=== PATIENT | male | born 1930 | race Caucasian/White ===

== ENCOUNTER 2017-03-10 17:50 | Emergency (ER) | payer MEDICARE, BC ==
[2017-03-10 18:08] LABS: Glucose,Whole Blood 177 mg/dL (75-99)
[2017-03-10 18:11] VITALS: RESP 16
--- NOTE | 2017-03-10 18:24 | ED ---
Fall HPI - General Chief Complaint: Fall Stated Complaint: Fall Time Seen by Provider: 03/10/17 18:01 Source: patient, EMS Mode of arrival: EMS - History of Present Illness Initial Comments: This 86-year-old white male presents after she apparently fell. He was at the assisted living facility and the staff apparently heard a thump. He cannot remember falling. He has no current injuries. He does present via EMS and apparently vomited just shortly prior to arrival. He did receive some Zofran per EMS. He has no current complaints. There is no neck pain, back pain, abdominal pain, or extremity pain. He does not know if he lost consciousness but overall is a very poor historian. No other complaints or modifying factors. - Related Data Home Medications Medication Instructions Recorded Confirmed Cholecalciferol [Vitamin D3] 1,000 unit PO DAILY 03/10/17 03/10/17 Insulin Aspart [Novolog Flexpen] 3 unit SQ [id number] 03/10/17 03/10/17 Insulin Detemir [Levemir Flextouch] 25 units SQ BID 03/10/17 03/10/17 Multivitamins, Thera [Multivitamin 1 tab PO DAILY 03/10/17 03/10/17 (formulary)] Promethazine 6.25MG/5Ml [Phenergan 6.25 mg PO TID PRN 03/10/17 03/10/17 Syrup] metFORMIN HCL 1,000 mg PO BID 03/10/17 03/10/17 sitaGLIPtin [Januvia] 50 mg PO DAILY 03/10/17 03/10/17 Allergies Allergy/AdvReac Type Severity Reaction Status Date / Time No Known Allergies Allergy Verified 03/10/17 18:58 Review of Systems ROS Statement: Those systems with pertinent positive or pertinent negative responses have been documented in the HPI. ROS Other: All systems not noted in ROS Statement are negative. Past Medical History Past Medical History: Diabetes Mellitus History of Any Multi-Drug Resistant Organisms: None Reported Additional Past Surgical History / Comment(s): abdominal (pt unsure what it was) Past Psychological History: No Psychological Hx Reported Smoking Status: Never smoker Past Alcohol Use History: None Reported Past Drug Use History: None Reported General Exam - General Exam Comments Initial Comments: GENERAL: The patient is well nourished and well hydrated. VITAL SIGNS: Heart rate, blood pressure, respiratory rate reviewed as recorded in nurse's notes. EYES: Pupils are round and reactive. Extraocular movements are intact. No conjunctival / lid redness or swelling. ENT: No external evidence of injury, swelling, or ecchymosis. Airway is patent. Throat is clear. NECK: Nontender. No swelling or evidence of injury. No subcutaneous emphysema. Trachea is midline. No thyroid mass. HEART: Regular rate and rhythm. Good peripheral pulses. LUNGS/CHEST: Breath sounds clear and equal bilaterally. No rales, rhonchi, or wheezes. No ecchymosis, subcutaneous emphysema, or tenderness. ABDOMEN: Abdomen soft without tenderness. No palpable masses or organomegaly. No peritoneal signs. No abdominal wall swelling or ecchymosis. EXTREMITIES: No extremity tenderness. Normal muscle tone and function. No thoracolumbar tenderness. NEUROLOGIC: Sensation is grossly intact. Cranial nerve exam reveals face is symmetrical, tongue is midline, speech is clear. SKIN: There is a minimal abrasion noted to the anterior aspect of the left dodd. No induration or masses noted. PSYCHIATRIC: Alert and oriented. Appropriate behavior and judgment. Limitations: no limitations Course Vital Signs 03/10/17 03/10/17 18:07 19:11 Temperature 97.6 F Pulse Rate 82 80 Respiratory 16 16 Rate Blood Pressure 180/87 170/80 O2 Sat by Pulse 95 94 L Oximetry Medical Decision Making - Medical Decision Making The patient was seen and examined. An EKG was completed which shows a normal sinus rhythm at a rate of 82 with a first-degree AV block. There is evidence of a left bundle branch block and associated ST-T wave changes. The HI interval is 280, the QRS duration is 170, and the QTC intervals are elevated at 537. The patient had a computed tomography scan of his head and neck and this does not show any acute processes. The computed tomography scan of the brain does show some atrophy and old infarcts but no new problems. The neck showed some degenerative changes. The blood sugar was normal. The 2 granddaughters later do present and state that he is in his normal state of mind. He and the granddaughters feel that he is okay to be transferred back to the adult foster care facility. No injuries are identified other than a minor abrasion to his left leg. - Lab Data Lab Results 03/10/17 Range/Units 18:04 POC Glucose (mg/dL) 177 H (75-99) mg/dL POC Glu Custom Stock Maker ID Geneva Ramsey Disposition Clinical Impression: Fall, Head injury, Abrasion Disposition: HOME SELF-CARE Condition: Good Instructions: Fall Prevention for Older Adults (ED) Referrals: None,Stated [Primary Care Provider] - 1-2 days Time of Disposition: 19:29
--- NOTE | 2017-03-10 19:07 | CT ---
EXAMINATION TYPE: CT brain frederic marques DATE OF EXAM: 03/10/2017 COMPARISON: NONE HISTORY: 86-year-old male, poor historian, probable fall. Found on floor. Patient does not remember fall. CT DLP: 1375.5 mGycm Automated exposure control for dose reduction was used. Technique: Examination of the head was done in axial plane without intravenous contrast. Coronal and sagittal reconstructions performed. CT of the cervical spine was obtained in axial plane without intravenous injection of contrast mater ial. Coronal and sagittal reformatted images were obtained from the axial views for evaluation of f ractures, spinal alignment and canal. FINDINGS: Head: There is no evidence of acute intracranial hemorrhage, acute ischemic changes, mass, mass-effect, or extra-axial fluid collection. There is no effacement of cerebral sulci or basal subarachnoid cister ns. There is no hydrocephalus. There is no midline shift. Escudero-white matter distinction is preserv ed. There is moderate generalized supratentorial volume loss and a moderate-sized area of encephalomalaci a in the left parietal lobe and smaller within the right parietal lobe. Patchy confluent white matter hypodensities in both periventricular and deep white matter regions and old lacunar infarcts in the right basal ganglia. Paranasal sinuses and mastoid air cells well pneumatized. Orbits and globes are intact. Cervical spine: No craniocervical junction and upper moiety, predental space widening, or prevertebral soft tissue sw elling. Reversal of the normal cervical lordosis secondary to hypertrophic facet and uncovertebral joint arth ropathy. There is grade 1 retrolisthesis at C3-C4 and C4-C5 with disc osteophyte complexes at multiple levels. No acute fracture of the cervical spine. Changes resulting in mild spinal canal stenosis. Additional variable moderate neuroforaminal stenosis , more moderate to severe on the left at C3-C4 and C4-C5. Sagittal and coronal reformatted images confirm above findings. COMBINED IMPRESSION: 1. 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 No acute intracranial abnormal ity seen. 2. No acute fracture seen of the cervical spine. Grade 1 retrolistheses at C3-C4 and C4-C5 with moder ate to advanced spondylotic change.
[2017-03-10] MEDS ORDERED: BACITRACIN 500 UNIT/GM OINT 28.4 GM TUBE TOPICAL ONE (19:29)
[2017-03-10 20:01] VITALS: BP 159/78; PULSE 70; TEMP 98.2
== END 2017-03-10 20:40 | disposition home or self-care (01) ==
LOC: EC 17:50
DX: S80.812A Abrasion, left lower leg, initial encounter (principal); S09.90XA Unspecified injury of head, initial encounter; E11.9 Type 2 diabetes mellitus without complications; Z79.4 Long term (current) use of insulin; Z79.899 Other long term (current) drug therapy; W19.XXXA Unspecified fall, initial encounter; Y92.009 Unspecified place in unspecified non-institutional (private) residence as the place of occurrence of the external cause
CPT/HCPCS: 36415; 70450; 72125; 93005; 99284

== ENCOUNTER 2017-12-02 12:02 | Emergency (ER) | payer BC, MEDICARE ==
[2017-12-02 12:19] VITALS: RESP 18
--- NOTE | 2017-12-02 12:31 | ED ---
General Adult HPI - General Chief complaint: Fall Stated complaint: fall, head injury Time Seen by Provider: 12/02/17 12:20 Source: patient, RN notes reviewed Mode of arrival: wheelchair Limitations: no limitations - History of Present Illness Initial comments: Patient is an 87-year-old male presented to the emergency room today with a chief complaint of a fall that occurred this morning. He states he was trying to get out of bed loss his balance hitting the back of a wall causing a laceration of right-sided head. Does live or [facility] home. Patient states he was no loss conscious. Does have some tenderness locally. Denies any other complaints or symptoms. Is not on any blood thinners. Patient denies any recent fever, chills, shortness of breath, chest pain, back pain, abdominal pain , nausea or vomiting, numbness or tingling, headaches or visual changes, or any other complaints. - Related Data Home Medications Medication Instructions Recorded Confirmed Insulin Detemir [Levemir Flextouch] 30 units SQ BID 03/10/17 12/02/17 Aspirin EC [Ecotrin Low Dose] 81 mg PO DAILY 12/02/17 12/02/17 Furosemide [Lasix] 40 mg PO DAILY PRN 12/02/17 12/02/17 Isosorbide Mononitrate ER [Imdur] 30 mg PO QAM 12/02/17 12/02/17 Lisinopril [Zestril] 2.5 mg PO DAILY PRN 12/02/17 12/02/17 Metoprolol Succinate (ER) [Toprol 25 mg PO DAILY 12/02/17 12/02/17 Xl] Multivitamins, Thera [Multivitamin 1 tab PO DAILY 12/02/17 12/02/17 (formulary)] Allergies Allergy/AdvReac Type Severity Reaction Status Date / Time No Known Allergies Allergy Verified 12/02/17 12:49 Review of Systems ROS Statement: Those systems with pertinent positive or pertinent negative responses have been documented in the HPI. ROS Other: All systems not noted in ROS Statement are negative. Past Medical History Past Medical History: CVA/TIA, Diabetes Mellitus, Memory Impairment, Myocardial Infarction (PR) Additional Past Medical History / Comment(s): pancreatitis with part of pancreas removed (2008) Last Myocardial Infarction Date:: 2008 History of Any Multi-Drug Resistant Organisms: None Reported Past Surgical History: Joint Replacement Additional Past Surgical History / Comment(s): part of pancreas removed. Past Anesthesia/Blood Transfusion Reactions: No Reported Reaction Past Psychological History: No Psychological Hx Reported Smoking Status: Never smoker Past Alcohol Use History: None Reported Past Drug Use History: None Reported General Exam - General Exam Comments Initial Comments: General: The patient is awake and alert, in no distress, and does not appear acutely ill. Eye: Pupils are equal, round and reactive to light. Extra-ocular movements are intact. No nystagmus. There is normal conjunctiva bilaterally. No signs of icterus. Ears, nose, mouth and throat: There are moist mucous membranes and no oral lesions. Neck: The neck is supple, there is no tenderness or JVD. Cardiovascular: There is a regular rate and rhythm. No murmur, rub or gallop is appreciated. Respiratory: Lungs are clear to auscultation, respirations are non-labored, breath sounds are equal. No wheezes, stridor, rales, or rhonchi. Musculoskeletal: Normal ROM, no tenderness. Sensation intact. Strength 5/5. Pulses equal bilaterally 2+. Neurological: A&O x 3. CN II-XII intact, There are no obvious motor or sensory deficits. Coordination appears grossly intact. Speech is normal. Skin: 2 cm laceration running to the right side of scalp. Psychiatric: Cooperative, appropriate mood & affect, normal judgment. Limitations: no limitations Course Vital Signs 12/02/17 12:12 Temperature 97.6 F Pulse Rate 46 L Respiratory 18 Rate Blood Pressure 145/56 O2 Sat by Pulse 97 Oximetry EKG Findings - EKG Comments: EKG Findings:: EKG performed at 1239: Shows sinus bradycardia with first-degree AV block a 43 bpm. OH interval 344. QRS 160. QT/QTC 676/571. Compared to previous EKG 03/13/2017. Procedures - Procedures Initial comment: 2 cm linear laceration running vertically to the right side of the scalp. The laceration was then cleansed with Betadine and irrigated with normal saline. The wound was inspected, and there was no evidence of injury to deep structures. No foreign body was noted in the wound. A total of 2 skin rcahael were placed with good approximation. Medical Decision Making - Medical Decision Making Patient reexamined at this time shows no signs of distress or discomfort. Patient denies any chest pain, shortness of breath, dizziness or lightheadedness. He states he was getting out of bed and lost his balance falling down hitting the right side of his head. Patient's CT is negative for any acute abnormality. Patient's EKG does show sinus bradycardia with a AV block. Does show change from previous EKG. Patient's cardiac enzymes elevated here in the emergency room troponin is 0.067. Compared to previous labs do show similar elevations. These results were discussed in detail with patient and his son at bedside. Advised that patient should be admitted for serial enzymes and cardiology consult. They have declined. States they have follow- up cardiology this evening every 6 months. States that they have known the doctor's been issues that they did not want to anything. Discussed that these could be new findings today. Again they state they do not want stay in the hospital. States couple followed up outpatient. Advised that this should return for any other concerns. - Lab Data Result diagrams: 12/02/17 13:43 12/02/17 13:43 Lab Results 12/02/17 12/02/17 12/02/17 Range/Units 13:43 13:43 13:43 WBC 7.5 (3.8-10.6) k/uL RBC 4.11 L (4.30-5.90) m/uL Hgb 12.2 L (13.0-17.5) gm/dL Hct 37.2 L (39.0-53.0) % MCV 90.4 (80.0-100.0) fL MCH 29.7 (25.0-35.0) pg MCHC 32.8 (31.0-37.0) g/dL RDW 13.4 (11.5-15.5) % Plt Count 221 (150-450) k/uL Neutrophils % 71 % Lymphocytes % 15 % Monocytes % 8 % Eosinophils % 2 % Basophils % 1 % Neutrophils # 5.3 (1.3-7.7) k/uL Lymphocytes # 1.2 (1.0-4.8) k/uL Monocytes # 0.6 (0-1.0) k/uL Eosinophils # 0.1 (0-0.7) k/uL Basophils # 0.1 (0-0.2) k/uL PT (9.0-12.0) sec INR (<1.2) APTT (22.0-30.0) sec Sodium 140 (137-145) mmol/L Potassium 4.1 (3.5-5.1) mmol/L Chloride 107 (98-107) mmol/L Carbon Dioxide 25 (22-30) mmol/L Anion Gap 8 mmol/L BUN 22 H (9-20) mg/dL Creatinine 1.34 H (0.66-1.25) mg/dL Est GFR (CKD-EPI)AfAm 55 (>60 ml/min/1.73 sqM) Est GFR (CKD-EPI)NonAf 47 (>60 ml/min/1.73 sqM) Glucose 216 H (74-99) mg/dL Calcium 9.1 (8.4-10.2) mg/dL Total Bilirubin 0.5 (0.2-1.3) mg/dL AST 25 (17-59) U/L ALT 32 (21-72) U/L Alkaline Phosphatase 97 (38-126) U/L Total Creatine Kinase 135 (55-170) U/L CK-MB (CK-2) 3.9 H (0.0-2.4) ng/mL CK-MB (CK-2) Rel Index 2.9 Troponin I 0.067 H* (0.000-0.034) ng/mL Total Protein 6.5 (6.3-8.2) g/dL Albumin 3.6 (3.5-5.0) g/dL 12/02/17 Range/Units 13:43 WBC (3.8-10.6) k/uL RBC (4.30-5.90) m/uL Hgb (13.0-17.5) gm/dL Hct (39.0-53.0) % MCV (80.0-100.0) fL MCH (25.0-35.0) pg MCHC (31.0-37.0) g/dL RDW (11.5-15.5) % Plt Count (150-450) k/uL Neutrophils % % Lymphocytes % % Monocytes % % Eosinophils % % Basophils % % Neutrophils # (1.3-7.7) k/uL Lymphocytes # (1.0-4.8) k/uL Monocytes # (0-1.0) k/uL Eosinophils # (0-0.7) k/uL Basophils # (0-0.2) k/uL PT 10.8 (9.0-12.0) sec INR 1.1 (<1.2) APTT 24.3 (22.0-30.0) sec Sodium (137-145) mmol/L Potassium (3.5-5.1) mmol/L Chloride (98-107) mmol/L Carbon Dioxide (22-30) mmol/L Anion Gap mmol/L BUN (9-20) mg/dL Creatinine (0.66-1.25) mg/dL Est GFR (CKD-EPI)AfAm (>60 ml/min/1.73 sqM) Est GFR (CKD-EPI)NonAf (>60 ml/min/1.73 sqM) Glucose (74-99) mg/dL Calcium (8.4-10.2) mg/dL Total Bilirubin (0.2-1.3) mg/dL AST (17-59) U/L ALT (21-72) U/L Alkaline Phosphatase (38-126) U/L Total Creatine Kinase (55-170) U/L CK-MB (CK-2) (0.0-2.4) ng/mL CK-MB (CK-2) Rel Index Troponin I (0.000-0.034) ng/mL Total Protein (6.3-8.2) g/dL Albumin (3.5-5.0) g/dL Disposition Clinical Impression: Fall, Scalp laceration, Cardiac enzymes elevated Disposition: HOME SELF-CARE Condition: Stable Instructions: Fall Prevention for Older Adults (ED) Additional Instructions: Please follow-up the local company refrigerated truck driver over the next 2 days. Please return here to the emergency room if any symptoms increase worsen or for any other concerns. Please have rachael removed in 10 days. Is patient prescribed a controlled substance at d/c from ED?: No Referrals: Nonstaff,Physician [Primary Care Provider] - 1-2 days Neftali Ortiz MD [STAFF PHYSICIAN] - 1-2 days Time of Disposition: 14:55
--- NOTE | 2017-12-02 13:13 | CT ---
EXAMINATION TYPE: CT brain frederic alba con DATE OF EXAM: 12/02/2017 COMPARISON: 1217 and 17 HISTORY: pain CT DLP: [address] of the brain was performed. The ventricles, basal cisterns and sulci overlying the cerebral convexities demonstrate moderate enla rgement. Remote insult parietal occipital regions bilaterally left greater than right. There is no evidence for intracranial hemorrhage or sulcal effacement. There is decreased attenuatio n about the periventricular white matter and deep white matter of both cerebral hemispheres, compatib le with chronic small vessel ischemia. No mass effects are seen. If symptoms persist consider MRI. Osseous calvarium is intact. Right temporal scalp hematoma and laceration. IMPRESSION: 1. Age related atrophic and chronic small vessel ischemic change without acute intracranial process seen at this time. CT Cervical Spine: Unenhanced CT of the cervical spine was performed with bone and soft tissue window settings submitted . Coronal and sagittal reconstruction is obtained. There is normal alignment and prevertebral soft tissues. No evidence for acute cervical fracture . Scattered degenerative disc disease and spondylosis. Biapical scarring. IMPRESSION: 1. No evidence for acute fracture or subluxation of the cervical spine.
[2017-12-02] MEDS ORDERED: SODIUM CHLORIDE 0.9% 1,000 ML IV STA (13:17)
[2017-12-02 13:56] LABS: Basophils # (A) 0.1 k/uL (0-0.2); Basophils % (A) 1 %; Eosinophils # (A) 0.1 k/uL (0-0.7); Eosinophils % (A) 2 %; HCT 37.2 % (39.0-53.0); HGB 12.2 gm/dL (13.0-17.5); Lymphocytes # (A) 1.2 k/uL (1.0-4.8); Lymphocytes % (A) 15 %; MCH 29.7 pg (25.0-35.0); MCHC 32.8 g/dL (31.0-37.0); MCV 90.4 fL (80.0-100.0); Mean Platelet Volume 8.6; Monocytes # (A) 0.6 k/uL (0-1.0); Monocytes % (A) 8 %; Neutrophils # (A) 5.3 k/uL (1.3-7.7); Neutrophils % (A) 71 %; Platelet Count 221 k/uL (150-450); RBC 4.11 m/uL (4.30-5.90); RDW 13.4 % (11.5-15.5); WBC 7.5 k/uL (3.8-10.6)
[2017-12-02 14:05] LABS: INR 1.1 (<1.2); Partial Thromboplastin Time 24.3 sec (22.0-30.0); Prothrombin Time 10.8 sec (9.0-12.0)
[2017-12-02 14:06] LABS: Albumin 3.6 g/dL (3.5-5.0); Calcium 9.1 mg/dL (8.4-10.2); Potassium 4.1 mmol/L (3.5-5.1); Total Bilirubin 0.5 mg/dL (0.2-1.3); Total Protein 6.5 g/dL (6.3-8.2)
[2017-12-02 14:28] LABS: Creatine Kinase MB 3.9 ng/mL (0.0-2.4)
[2017-12-02 14:41] LABS: Troponin I 0.067 ng/mL (0.000-0.034)
[2017-12-02 15:00] VITALS: BP 168/72; PULSE 40; TEMP 97.9
== END 2017-12-02 15:58 | disposition home or self-care (01) ==
LOC: EC 12:02
DX: S01.01XA Laceration without foreign body of scalp, initial encounter (principal); R74.8 Abnormal levels of other serum enzymes; I44.30 Unspecified atrioventricular block; R00.1 Bradycardia, unspecified; E11.9 Type 2 diabetes mellitus without complications; I25.2 Old myocardial infarction; Z79.4 Long term (current) use of insulin; Z79.82 Long term (current) use of aspirin; Z79.899 Other long term (current) drug therapy; W01.198A Fall on same level from slipping, tripping and stumbling with subsequent striking against other object, initial encounter; Y93.01 Activity, walking, marching and hiking; Y92.009 Unspecified place in unspecified non-institutional (private) residence as the place of occurrence of the external cause
CPT/HCPCS: 12001; 36415; 70450; 72125; 80053; 82550; 82553; 84484; 85025; 85610; 85730; 93005; 96360; 96361; 99284

== ENCOUNTER 2017-12-04 07:46 | Inpatient (IN) | payer MEDICARE ==
[2017-12-04 07:55] LABS: Glucose,Whole Blood 187 mg/dL (75-99)
[2017-12-04] MEDS ORDERED: SODIUM CHLORIDE 0.9% 500 ML IV STA (08:07)
[2017-12-04 08:17] LABS: Basophils % (A) 0 %; Eosinophils # (A) 0.2 k/uL (0-0.7); Eosinophils % (A) 2 %; HCT 39.3 % (39.0-53.0); HGB 12.4 gm/dL (13.0-17.5); Lymphocytes # (A) 0.9 k/uL (1.0-4.8); Lymphocytes % (A) 8 %; MCH 29.1 pg (25.0-35.0); MCHC 31.4 g/dL (31.0-37.0); MCV 92.7 fL (80.0-100.0); Mean Platelet Volume 8.1; Monocytes # (A) 0.5 k/uL (0-1.0); Monocytes % (A) 5 %; Neutrophils # (A) 8.9 k/uL (1.3-7.7); Neutrophils % (A) 84 %; Platelet Count 233 k/uL (150-450); RBC 4.24 m/uL (4.30-5.90); RDW 13.6 % (11.5-15.5); WBC 10.6 k/uL (3.8-10.6)
[2017-12-04 08:23] LABS: Glucose,Whole Blood 90 mg/dL (75-99)
[2017-12-04 08:28] LABS: ALT 26 U/L (21-72); AST 33 U/L (17-59); Albumin 3.6 g/dL (3.5-5.0); Alkaline Phosphatase 90 U/L (38-126); Anion Gap 9 mmol/L; Blood Urea Nitrogen 23 mg/dL (9-20); Carbon Dioxide 25 mmol/L (22-30); Chloride 109 mmol/L (98-107); Glucose 108 mg/dL (74-99); Lipase <10 U/L (23-300); Magnesium 2.1 mg/dL (1.6-2.3); Potassium 4.2 mmol/L (3.5-5.1); Sodium 143 mmol/L (137-145); Total Bilirubin 0.5 mg/dL (0.2-1.3); Total Protein 6.8 g/dL (6.3-8.2)
[2017-12-04 08:29] LABS: INR 1.1 (<1.2); Partial Thromboplastin Time 22.7 sec (22.0-30.0); Prothrombin Time 10.5 sec (9.0-12.0)
--- NOTE | 2017-12-04 08:49 | XR ---
EXAMINATION TYPE: XR chest 2V DATE OF EXAM: 12/04/2017 COMPARISON: 03/12/2017 HISTORY: Shortness of breath TECHNIQUE: Frontal and lateral views of the chest are obtained. FINDINGS: Scattered senescent parenchymal changes noted. Hyperinflation compatible with COPD. Mild increased density right perihilar region may reflect developing infiltrate. Correlate clinically and consider progress studies. Heart size is stable. Mediastinal structures are stable and grossly unremarkable. No evidence for hilar prominence. Degenerative changes dorsal spine. IMPRESSION: 1. Mild increased density right perihilar region may reflect developing infiltrate. Correlate clinica lly and consider progress studies.
--- NOTE | 2017-12-04 08:53 | ED ---
General Adult HPI - General Chief complaint: Recheck/Abnormal Lab/Rx Stated complaint: hypoglycemia Source: patient Mode of arrival: EMS Limitations: no limitations - History of Present Illness Initial comments: Dictation was produced using [employer] dictation software. please excuse any grammatical, word or spelling errors. Chief Complaint: 87-year-old male with past medical history of diabetes, dementia, pancreatitis presents with altered mental status and hypoglycemia. History of Present Illness: Patient is a 87-year-old male who currently resides in an [facility] home. He was found by [facility] staff to be altered. There was concerns that patient's blood sugar was low. EMS was called EMS performed a fingerstick and found his glucose to be in the 40s. An attempt was made to have patient take oral glucose. He was to altered for that to be done successfully. EMS gave IV axis and gave him one amp of D50. Patient's mentation improved significantly. Patient is unreliable historian at this time. It is unclear whether this is his baseline. Unable to obtain ROS at this time given mental status - Related Data Home Medications Medication Instructions Recorded Confirmed Insulin Detemir [Levemir Flextouch] 30 units SQ BID 03/10/17 12/04/17 Aspirin EC [Ecotrin Low Dose] 81 mg PO DAILY 12/02/17 12/04/17 Furosemide [Lasix] 40 mg PO DAILY PRN 12/02/17 12/04/17 Isosorbide Mononitrate ER [Imdur] 30 mg PO QAM 12/02/17 12/04/17 Lisinopril [Zestril] 2.5 mg PO DAILY PRN 12/02/17 12/04/17 Metoprolol Succinate (ER) [Toprol 25 mg PO DAILY 12/02/17 12/04/17 Xl] Multivitamins, Thera [Multivitamin 1 tab PO DAILY 12/02/17 12/04/17 (formulary)] Allergies Allergy/AdvReac Type Severity Reaction Status Date / Time No Known Allergies Allergy Verified 12/04/17 08:35 Review of Systems ROS Statement: Those systems with pertinent positive or pertinent negative responses have been documented in the HPI. ROS Other: All systems not noted in ROS Statement are negative. Past Medical History Past Medical History: CVA/TIA, Diabetes Mellitus, Memory Impairment, Myocardial Infarction ([place]) Additional Past Medical History / Comment(s): pancreatitis with part of pancreas removed (2008) Last Myocardial Infarction Date:: 2008 History of Any Multi-Drug Resistant Organisms: None Reported Past Surgical History: Joint Replacement Additional Past Surgical History / Comment(s): part of pancreas removed. Past Anesthesia/Blood Transfusion Reactions: No Reported Reaction Past Psychological History: No Psychological Hx Reported Smoking Status: Never smoker Past Alcohol Use History: None Reported Past Drug Use History: None Reported General Exam - General Exam Comments Initial Comments: PHYSICAL EXAM: General Impression: Alert and oriented, no acute distress, smells of urine HEENT: Normocephalic atraumatic, extra-ocular movements intact, pupils equal and reactive to light bilaterally, mucous membranes moist. Cardiovascular: Bradycardic Chest: Lungs clear to auscultation bilaterally, no rhonchi, no wheeze, no rales Abdomen: Bowel sounds present, abdomen soft, non-tender Musculoskeletal: Pulses present and equal in all extremities, no peripheral edema Motor: Power 5/5 bilaterally, no focal deficits noted Neurological: CN II-XII grossly intact, no focal motor or sensory deficits noted Skin: Intact with no visualized rashes Psych: Normal affect and mood Limitations: no limitations Course Vital Signs 12/04/17 12/04/17 07:57 09:28 Temperature 97.9 F Pulse Rate 51 L 68 Respiratory 16 16 Rate Blood Pressure 169/76 175/90 O2 Sat by Pulse 97 98 Oximetry Medical Decision Making - Medical Decision Making ED course: An is a 87-year-old male with insulin-dependent diabetes mellitus presents after episode of hypoglycemia. Vital signs upon arrival shows heart rate 51, rest of vital signs within normal limits. Patient appears alert at this time. Is unclear what his normal baseline mental status is. Chart review shows that patient was evaluated in the emergency department 2 days ago where family refuse admission. At that time patient had elevated troponin and medical recommendation is that time was to admit for serial troponins. There were some EKG changes as well.It is unclear whether this is patient's baseline mental status. No family here to discuss patient's normal mentation. Computed tomography scan was obtained. Pending results. Patient was hypoglycemic. He is concerned that patient's hyperglycemia may be secondary to infection. CBC was obtained showing no leukocytosis. Patient has a hemoglobin of 12.4 which is at around patient's baseline. Coag panel is unremarkable. Metabolic panel shows mild elevation in renal markers which appear to be baseline for patient. Patient's glucose was 108. Troponin level is 0.064 which is around patient's baseline. He does not have any signs of acute distress. No chest pain. EKG is unchanged compared to recent EKG. Urinalysis does not show any findings to suggest urinary tract infection. Chest x-ray shows mild early right infiltrate. Patient's from a custodial will be treated for age. Pending results for CT head. - Lab Data Result diagrams: 12/04/17 08:06 12/04/17 08:06 Lab Results 12/04/17 12/04/17 12/04/17 Range/Units 07:52 08:06 08:06 WBC 10.6 (3.8-10.6) k/uL RBC 4.24 L (4.30-5.90) m/uL Hgb 12.4 L (13.0-17.5) gm/dL Hct 39.3 (39.0-53.0) % MCV 92.7 (80.0-100.0) fL MCH 29.1 (25.0-35.0) pg MCHC 31.4 (31.0-37.0) g/dL RDW 13.6 (11.5-15.5) % Plt Count 233 (150-450) k/uL Neutrophils % 84 % Lymphocytes % 8 % Monocytes % 5 % Eosinophils % 2 % Basophils % 0 % Neutrophils # 8.9 H (1.3-7.7) k/uL Lymphocytes # 0.9 L (1.0-4.8) k/uL Monocytes # 0.5 (0-1.0) k/uL Eosinophils # 0.2 (0-0.7) k/uL Basophils # 0.0 (0-0.2) k/uL PT (9.0-12.0) sec INR (<1.2) APTT (22.0-30.0) sec Sodium (137-145) mmol/L Potassium (3.5-5.1) mmol/L Chloride (98-107) mmol/L Carbon Dioxide (22-30) mmol/L Anion Gap mmol/L BUN (9-20) mg/dL Creatinine (0.66-1.25) mg/dL Est GFR (CKD-EPI)AfAm (>60 ml/min/1.73 sqM) Est GFR (CKD-EPI)NonAf (>60 ml/min/1.73 sqM) Glucose (74-99) mg/dL POC Glucose (mg/dL) 187 H (75-99) mg/dL POC Glu Metal Mixer ID Nigel Larios Calcium (8.4-10.2) mg/dL Magnesium (1.6-2.3) mg/dL Total Bilirubin (0.2-1.3) mg/dL AST (17-59) U/L ALT (21-72) U/L Alkaline Phosphatase (38-126) U/L Total Creatine Kinase 162 (55-170) U/L CK-MB (CK-2) 3.7 H (0.0-2.4) ng/mL CK-MB (CK-2) Rel Index 2.3 Troponin I 0.064 H* (0.000-0.034) ng/mL Total Protein (6.3-8.2) g/dL Albumin (3.5-5.0) g/dL Lipase (23-300) U/L Urine Color Urine Appearance (Clear) Urine pH (5.0-8.0) Ur Specific [place] (1.001-1.035) Urine Protein (Negative) Urine Glucose (UA) (Negative) Urine Ketones (Negative) Urine Blood (Negative) Urine Nitrite (Negative) Urine Bilirubin (Negative) Urine Urobilinogen (<2.0) mg/dL Ur Leukocyte Esterase (Negative) 12/04/17 12/04/17 12/04/17 Range/Units 08:06 08:06 08:17 WBC (3.8-10.6) k/uL RBC (4.30-5.90) m/uL Hgb (13.0-17.5) gm/dL Hct (39.0-53.0) % MCV (80.0-100.0) fL MCH (25.0-35.0) pg MCHC (31.0-37.0) g/dL RDW (11.5-15.5) % Plt Count (150-450) k/uL Neutrophils % % Lymphocytes % % Monocytes % % Eosinophils % % Basophils % % Neutrophils # (1.3-7.7) k/uL Lymphocytes # (1.0-4.8) k/uL Monocytes # (0-1.0) k/uL Eosinophils # (0-0.7) k/uL Basophils # (0-0.2) k/uL PT 10.5 (9.0-12.0) sec INR 1.1 (<1.2) APTT 22.7 (22.0-30.0) sec Sodium 143 (137-145) mmol/L Potassium 4.2 (3.5-5.1) mmol/L Chloride 109 H (98-107) mmol/L Carbon Dioxide 25 (22-30) mmol/L Anion Gap 9 mmol/L BUN 23 H (9-20) mg/dL Creatinine 1.30 H (0.66-1.25) mg/dL Est GFR (CKD-EPI)AfAm 57 (>60 ml/min/1.73 sqM) Est GFR (CKD-EPI)NonAf 49 (>60 ml/min/1.73 sqM) Glucose 108 H (74-99) mg/dL POC Glucose (mg/dL) 90 (75-99) mg/dL POC Glu Metal Mixer ID June Calcium 9.0 (8.4-10.2) mg/dL Magnesium 2.1 (1.6-2.3) mg/dL Total Bilirubin 0.5 (0.2-1.3) mg/dL AST 33 (17-59) U/L ALT 26 (21-72) U/L Alkaline Phosphatase 90 (38-126) U/L Total Creatine Kinase (55-170) U/L CK-MB (CK-2) (0.0-2.4) ng/mL CK-MB (CK-2) Rel Index Troponin I (0.000-0.034) ng/mL Total Protein 6.8 (6.3-8.2) g/dL Albumin 3.6 (3.5-5.0) g/dL Lipase <10 L (23-300) U/L Urine Color Urine Appearance (Clear) Urine pH (5.0-8.0) Ur Specific [place] (1.001-1.035) Urine Protein (Negative) Urine Glucose (UA) (Negative) Urine Ketones (Negative) Urine Blood (Negative) Urine Nitrite (Negative) Urine Bilirubin (Negative) Urine Urobilinogen (<2.0) mg/dL Ur Leukocyte Esterase (Negative) 12/04/17 12/04/17 Range/Units 09:17 09:37 WBC (3.8-10.6) k/uL RBC (4.30-5.90) m/uL Hgb (13.0-17.5) gm/dL Hct (39.0-53.0) % MCV (80.0-100.0) fL MCH (25.0-35.0) pg MCHC (31.0-37.0) g/dL RDW (11.5-15.5) % Plt Count (150-450) k/uL Neutrophils % % Lymphocytes % % Monocytes % % Eosinophils % % Basophils % % Neutrophils # (1.3-7.7) k/uL Lymphocytes # (1.0-4.8) k/uL Monocytes # (0-1.0) k/uL Eosinophils # (0-0.7) k/uL Basophils # (0-0.2) k/uL PT (9.0-12.0) sec INR (<1.2) APTT (22.0-30.0) sec Sodium (137-145) mmol/L Potassium (3.5-5.1) mmol/L Chloride (98-107) mmol/L Carbon Dioxide (22-30) mmol/L Anion Gap mmol/L BUN (9-20) mg/dL Creatinine (0.66-1.25) mg/dL Est GFR (CKD-EPI)AfAm (>60 ml/min/1.73 sqM) Est GFR (CKD-EPI)NonAf (>60 ml/min/1.73 sqM) Glucose (74-99) mg/dL POC Glucose (mg/dL) 97 (75-99) mg/dL POC Glu Metal Mixer ID Calcium (8.4-10.2) mg/dL Magnesium (1.6-2.3) mg/dL Total Bilirubin (0.2-1.3) mg/dL AST (17-59) U/L ALT (21-72) U/L Alkaline Phosphatase (38-126) U/L Total Creatine Kinase (55-170) U/L CK-MB (CK-2) (0.0-2.4) ng/mL CK-MB (CK-2) Rel Index Troponin I (0.000-0.034) ng/mL Total Protein (6.3-8.2) g/dL Albumin (3.5-5.0) g/dL Lipase (23-300) U/L Urine Color Yellow Urine Appearance Clear (Clear) Urine pH 5.0 (5.0-8.0) Ur Specific [place] 1.016 (1.001-1.035) Urine Protein Trace H (Negative) Urine Glucose (UA) Trace H (Negative) Urine Ketones Negative (Negative) Urine Blood Negative (Negative) Urine Nitrite Negative (Negative) Urine Bilirubin Negative (Negative) Urine Urobilinogen <2.0 (<2.0) mg/dL Ur Leukocyte Esterase Negative (Negative) Disposition Clinical Impression: HCAP (healthcare-associated pneumonia), Hypoglycemia Disposition: ADMITTED IP TO THIS [facility] Condition: Fair Referrals: Nonstaff,Physician [Primary Care Provider] - 1-2 days Decision Time: 10:19
[2017-12-04 08:56] LABS: Creatine Kinase MB 3.7 ng/mL (0.0-2.4)
[2017-12-04 09:08] LABS: Troponin I 0.064 ng/mL (0.000-0.034)
[2017-12-04 09:21] LABS: Glucose,Whole Blood 97 mg/dL (75-99)
[2017-12-04] MEDS ORDERED: AZITHROMYCIN 500 MG in SODIUM CHLORIDE 0.9% 250 ML IVPB STA (09:48)
[2017-12-04] MEDS ORDERED: cefTRIAXone IN SWFI 1,000 MG/10 ML SYRINGE IVP STA (09:49)
[2017-12-04 09:59] LABS: Appearance,Urine Clear (Clear); Bilirubin,Urine Negative (Negative); Blood,Urine Negative (Negative); Color,Urine Yellow; Glucose,Urine (UA) Trace (Negative); Ketones,Urine Negative (Negative); Leukocyte Esterase,Urine Negative (Negative); Nitrite,Urine Negative (Negative); Protein,Urine Trace (Negative); Specific Gravity,Urine 1.016 (1.001-1.035); Urobilinogen,Urine <2.0 mg/dL (<2.0)
[2017-12-04] MEDS ORDERED: CEFEPIME 2 GM in SODIUM CHLORIDE 0.9% 50 ML IVPB STA (09:59)
[2017-12-04] MEDS ORDERED: VANCOMYCIN 2,000 MG in SODIUM CHLORIDE 0.9% 500 ML IVPB STA (10:05)
[2017-12-04] MEDS ORDERED: NALOXONE 0.4 MG/ML 1 ML VIAL IV PRN (10:14)
[2017-12-04] MEDS ORDERED: VANCOMYCIN IV PER PHARMACY 1 EACH MISC MISCELLANE PRN (10:16)
[2017-12-04] MEDS ORDERED: GLUCAGON 1 MG/ML VIAL IVP STA (10:42)
[2017-12-04] MEDS ORDERED: ATROPINE SULFATE 0.1 MG/ML 10ML SYRINGE IV STA (10:42)
[2017-12-04] MEDS ORDERED: CALCIUM GLUCONATE 1,000 MG in SODIUM CHLORIDE 0.9% 100 ML IVPB ONE (10:42)
--- NOTE | 2017-12-04 10:55 | CT ---
EXAMINATION TYPE: CT brain wo con DATE OF EXAM: 12/04/2017 COMPARISON: 12/02/2017 HISTORY: Pain and hypoglycemia CT DLP: [address] of the brain was performed. The ventricles, basal cisterns and sulci overlying the cerebral convexities demonstrate moderate enla rgement. There is remote insult parietal occipital regions again noted. There is no evidence for intracranial hemorrhage or sulcal effacement. There is decreased attenuation about the periventricular white matter and deep white matter of both c erebral hemispheres, compatible with chronic small vessel ischemia. Differential diagnosis does inclu de demyelination. No mass effects are seen.No midline shift. Osseous calvarium is intact. If symptoms persist consider MRI. IMPRESSION: 1. Age related atrophic and chronic small vessel ischemic change without acute intracranial process s een at this time. Remote insults noted.
[2017-12-04] MEDS ORDERED: SODIUM CHLORIDE 0.9% 1,000 ML IV SCH (11:30)
[2017-12-04 12:24] LABS: Glucose,Whole Blood 114 mg/dL (75-99)
--- NOTE | 2017-12-04 14:27 | P.CRDCN ---
History of Present Illness Consult date: 12/04/17 Requesting physician: Andrade E Sheet Reason for Consult (text): Bradycardia Chief complaint: Fall History of present illness: This is an 87-year-old gentleman who resides in an extended care facility. He has a known history of diabetes, hypertension, hyperlipidemia, presented to the hospital here after experiencing a fall at home. According to the patient he became unsteady and fell. He denies having any dizziness or lightheadedness, and states that he did not lose consciousness. EKG on arrival here showed a marked sinus bradycardia with first-degree AV block. Subsequent EKG continued to show sinus bradycardia with first-degree AV block and left bundle branch block pattern. CAT scan of the brain showed age-related atrophic and chronic small vessel ischemic change without acute intracranial process. Blood pressure on arrival here 168/70, heart rate in the 50s, 97% on 2 L of oxygen. Blood pressure at present 150/80, heart rate in the 40s to 60s, 97% on 2 L of oxygen. It was noted in the emergency room that the heart rate did go down to the 30 range and atropine was given times one. Patient did receive his beta ryann this morning. He was taking metoprolol 25 mg daily as an outpatient. We will place this on hold and check a TSH level. At the time of my examination , he denies any dizziness or lightheadedness, he appears to be alert and oriented 3. He does have rachael in the right side of his head where he incurred a laceration from his fall. White blood cell count 10.6, hemoglobin 12.4, platelet count 233. Sodium 143, potassium 4.2, BUN 23, creatinine 1.3. Troponin 0.064. 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 Last Myocardial Infarction Date:: 03/12/17 History of Any Multi-Drug Resistant Organisms: None Reported Past Surgical History: Orthopedic Surgery Additional Past Surgical History / Comment(s): part of pancreas removed, L hip fracture with surgery. Past Anesthesia/Blood Transfusion Reactions: No Reported Reaction Smoking Status: Never smoker - Past Family History Father Family Medical History: No Reported History Additional Family Medical History / Comment(s): Pt states his father was healthy and lived to be 103 yrs old. Mother Family Medical History: No Reported History Additional Family Medical History / Comment(s): Pt states his mother was healthy and lived into her 70s. Medications and Allergies Home Medications Medication Instructions Recorded Confirmed Type Insulin Detemir [Levemir Flextouch] 30 units SQ BID 03/10/17 12/04/17 History Aspirin EC [Ecotrin Low Dose] 81 mg PO DAILY 12/02/17 12/04/17 History Furosemide [Lasix] 40 mg PO DAILY PRN 12/02/17 12/04/17 History Isosorbide Mononitrate ER [Imdur] 30 mg PO QAM 12/02/17 12/04/17 History Lisinopril [Zestril] 2.5 mg PO DAILY PRN 12/02/17 12/04/17 History Metoprolol Succinate (ER) [Toprol 25 mg PO DAILY 12/02/17 12/04/17 History Xl] Multivitamins, Thera [Multivitamin 1 tab PO DAILY 12/02/17 12/04/17 History (formulary)] Allergies Allergy/AdvReac Type Severity Reaction Status Date / Time No Known Allergies Allergy Verified 12/04/17 08:35 Physical Exam Vitals: Vital Signs Temp Pulse Resp BP Pulse Ox 12/04/17 11:16 97.8 F 59 L 16 171/67 98 12/04/17 10:19 55 L 18 191/94 99 12/04/17 09:28 68 16 175/90 98 12/04/17 07:57 97.9 F 51 L 16 169/76 97 Intake and Output 12/03/17 12/04/17 12/04/17 22:59 06:59 14:59 Other: Weight 90.718 kg PHYSICAL EXAMINATION: GENERAL: This is an 87-year-old gentleman in no acute distress at the time of my examination HEENT: Laceration noted on the right side of the head with a 2-[address] normocephalic[address] Pupils equal, round. Sclera anicteric. Conjunctiva are clear. Mucous membranes of the mouth are moist. Neck is supple. There is no elevated jugular venous pressure. No carotid bruit is heard. HEART EXAMINATION: Heart S1, S2 normal. No murmur or gallop heard. CHEST EXAMINATION: Lungs are clear to auscultation and precussion. No chest wall tenderness is noted on palpation or with deep breathing. ABDOMEN: Soft, nontender. Bowel sounds are heard. No organomegaly noted. EXTREMITIES: 2+ peripheral pulses with no evidence of peripheral edema and no calf tenderness noted. NEUROLOGIC patient is awake, alert and oriented X3. . Results 12/04/17 08:06 12/04/17 08:06 Cardiac Enzymes 12/04/17 12/04/17 Range/Units 08:06 08:06 AST 33 (17-59) U/L CK-MB (CK-2) 3.7 H (0.0-2.4) ng/mL Troponin I 0.064 H* (0.000-0.034) ng/mL Coagulation 12/04/17 Range/Units 08:06 PT 10.5 (9.0-12.0) sec APTT 22.7 (22.0-30.0) sec CBC 12/04/17 Range/Units 08:06 WBC 10.6 (3.8-10.6) k/uL RBC 4.24 L (4.30-5.90) m/uL Hgb 12.4 L (13.0-17.5) gm/dL Hct 39.3 (39.0-53.0) % Plt Count 233 (150-450) k/uL Comprehensive Metabolic Panel 12/04/17 Range/Units 08:06 Sodium 143 (137-145) mmol/L Potassium 4.2 (3.5-5.1) mmol/L Chloride 109 H (98-107) mmol/L Carbon Dioxide 25 (22-30) mmol/L BUN 23 H (9-20) mg/dL Creatinine 1.30 H (0.66-1.25) mg/dL Glucose 108 H (74-99) mg/dL Calcium 9.0 (8.4-10.2) mg/dL AST 33 (17-59) U/L ALT 26 (21-72) U/L Alkaline Phosphatase 90 (38-126) U/L Total Protein 6.8 (6.3-8.2) g/dL Albumin 3.6 (3.5-5.0) g/dL Current Medications Generic Name Dose Route Start Last Admin Trade Name Freq PRN Reason Stop Dose Admin Vancomycin HCl 1,750 mg/ 500 mls @ 166.667 mls/hr 12/05/17 06:00 Sodium Chloride IVPB Q24H JANE Sodium Chloride 1,000 mls @ 75 mls/hr 12/04/17 11:30 12/04/17 11:19 Saline 0.9% IV 75 mls/hr .[id number] JANE Administration Naloxone HCl 0.2 mg 12/04/17 10:14 Narcan IV Q2M PRN Opioid Reversal Pantoprazole Sodium 40 mg 12/05/17 09:00 Protonix IV DAILY JANE Intake and Output 12/03/17 12/04/17 12/04/17 22:59 06:59 14:59 Other: Weight 90.718 kg Patient Weight 12/05/17 06:59 Weight 90.718 kg 12/04/17 08:06 12/04/17 08:06 EKG Interpretations (text) EKG shows a sinus bradycardia with first-degree AV block and left bundle branch block pattern Assessment and Plan Plan: Assessment and plan #1 episode of fall with no clear-cut evidence of syncope, patient states he became unsteady and tripped and fell, denies passing out. #2 bradycardia, patient was on metoprolol 25 mg daily at home. He is noted to be in a marked sinus bradycardia with axis deviation, left bundle-branch block pattern #3 hypertension #4 diabetes #5 hyperlipidemia Plan We will obtain an echocardiogram with Doppler study as well as a TSH level. We will hold the patient's metoprolol sesame and continue to monitor for any further significant bradycardia arrhythmia. DNP note has been reviewed, I agree with a documented findings and plan of care. Patient was seen and examined.
--- NOTE | 2017-12-04 16:54 | P.HPIM ---
History of Present Illness This is a pleasant 87 years old male with past medical history of heart failure , diabetes mellitus2, dementia, coronary artery disease, chronic kidney disease stage III, chronic pancreatitis is status post partial resection, who presents because of mental status and hypoglycemia. Patient came from [facility] home, and he notices his blood glucose to be low in the 40s. As per documents patient also fell prior to admission to the hospital Patient was on Levemir 30 units twice a day at home On admission patient vitals were stable however he was bradycardic. EKG on arrival here showed a marked sinus bradycardia with first-degree AV block. Subsequent EKG continued to show sinus bradycardia with first-degree AV block and left bundle branch block pattern. BC and BMP were unremarkable except for mildly elevated creatinine at 1.3 which is close to his baseline. LFTs were within normal limits. However his troponin was elevated at 0.06 review is negative. Chest x-ray: Possible right perihilar infiltrates CT of the head no acute changes. Patient already received antibiotics including vancomycin emergency room. 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 Last Myocardial Infarction Date:: 03/12/17 History of Any Multi-Drug Resistant Organisms: None Reported Past Surgical History: Orthopedic Surgery Additional Past Surgical History / Comment(s): part of pancreas removed, L hip fracture with surgery. Past Anesthesia/Blood Transfusion Reactions: No Reported Reaction Smoking Status: Never smoker - Past Family History Father Family Medical History: No Reported History Additional Family Medical History / Comment(s): Pt states his father was healthy and lived to be 103 yrs old. Mother Family Medical History: No Reported History Additional Family Medical History / Comment(s): Pt states his mother was healthy and lived into her 70s. Medications and Allergies Home Medications Medication Instructions Recorded Confirmed Type Insulin Detemir [Levemir Flextouch] 30 units SQ BID 03/10/17 12/04/17 History Aspirin EC [Ecotrin Low Dose] 81 mg PO DAILY 12/02/17 12/04/17 History Furosemide [Lasix] 40 mg PO DAILY PRN 12/02/17 12/04/17 History Isosorbide Mononitrate ER [Imdur] 30 mg PO QAM 12/02/17 12/04/17 History Lisinopril [Zestril] 2.5 mg PO DAILY PRN 12/02/17 12/04/17 History Metoprolol Succinate (ER) [Toprol 25 mg PO DAILY 12/02/17 12/04/17 History Xl] Multivitamins, Thera [Multivitamin 1 tab PO DAILY 12/02/17 12/04/17 History (formulary)] Allergies Allergy/AdvReac Type Severity Reaction Status Date / Time No Known Allergies Allergy Verified 12/04/17 08:35 Physical Exam Vitals: Vital Signs Temp Pulse Pulse Resp BP BP Pulse Ox 12/04/17 15:51 98.6 F 37 L 18 144/56 97 12/04/17 12:00 98.2 F 43 L 18 151/87 97 12/04/17 11:16 97.8 F 59 L 16 171/67 98 12/04/17 10:19 55 L 18 191/94 99 12/04/17 09:28 68 16 175/90 98 12/04/17 07:57 97.9 F 51 L 16 169/76 97 Intake and Output 12/04/17 12/04/17 12/04/17 06:59 14:59 22:59 Other: Weight 90.718 kg Results CBC & Chem 7: 12/04/17 08:06 12/04/17 08:06 Labs: Abnormal Lab Results - Last 24 Hours (Table) 12/04/17 12/04/17 12/04/17 Range/Units 07:52 08:06 08:06 RBC 4.24 L (4.30-5.90) m/uL Hgb 12.4 L (13.0-17.5) gm/dL Neutrophils # 8.9 H (1.3-7.7) k/uL Lymphocytes # 0.9 L (1.0-4.8) k/uL Chloride (98-107) mmol/L BUN (9-20) mg/dL Creatinine (0.66-1.25) mg/dL Glucose (74-99) mg/dL POC Glucose (mg/dL) 187 H (75-99) mg/dL CK-MB (CK-2) 3.7 H (0.0-2.4) ng/mL Troponin I 0.064 H* (0.000-0.034) ng/mL Lipase (23-300) U/L Urine Protein (Negative) Urine Glucose (UA) (Negative) 12/04/17 12/04/17 12/04/17 Range/Units 08:06 09:37 12:11 RBC (4.30-5.90) m/uL Hgb (13.0-17.5) gm/dL Neutrophils # (1.3-7.7) k/uL Lymphocytes # (1.0-4.8) k/uL Chloride 109 H (98-107) mmol/L BUN 23 H (9-20) mg/dL Creatinine 1.30 H (0.66-1.25) mg/dL Glucose 108 H (74-99) mg/dL POC Glucose (mg/dL) 114 H (75-99) mg/dL CK-MB (CK-2) (0.0-2.4) ng/mL Troponin I (0.000-0.034) ng/mL Lipase <10 L (23-300) U/L Urine Protein Trace H (Negative) Urine Glucose (UA) Trace H (Negative) Microbiology - Last 24 Hours (Table) 12/04/17 09:37 Urine Culture - Preliminary Urine,Voided Thrombosis Risk Factor Assmnt - Choose All That Apply Any of the Below Risk Factors Present?: Yes Each Factor Represents 1 point: Medical pt on bed rest, Obesity (BMI >25), Serious lung disease incl. pneumonia (< 1month) Other Risk Factors: Yes Each Risk Factor Represents 2 Points: Patient confined to bed Each Risk Factor Represents 3 Points: Age 75 years or older Other congenital or acquired thrombophilia - If yes, enter type in comment: No Thrombosis Risk Factor Assessment Total Risk Factor Score: 8 Thrombosis Risk Factor Assessment Level: High Risk Assessment and Plan Assessment: Altered mental status, mostly secondary to hypoglycemia, improved Hypoglycemia, resolved Bradycardia and elevated troponins, cardiology following the patient FAll, possibly secondary to above Possible right perihilar infiltrates, doubt pneumonia Dementia History of CHF History of CVA/TIA Plan: This is a pleasant 87 years old male who presents because of fall hypoglycemia, possible pneumonia and bradycardia. On admission patient hypoglycemia is been corrected and his altered mental status has improved. Cardiology team evaluated the patient for bradycardia. Continue with telemetry. Continue with same treatment. Continue with symptomatic treatment. Resume home medication. Patient also with possible perihilar infiltrates, however no leukocytosis or fever, patient with no respiratory symptoms, unlikely patient have pneumonia and at this point antibiotics were risks than benefits. DVT and GI prophylaxis. Patient is a clinical course of the patient DVT prophylaxis heparin GI prophylaxis Protonix PT/OT: Pending Prognosis is guarded
[2017-12-04] MEDS ORDERED: DEXTROSE 5%-0.45% NACL 1,000 ML IV SCH (17:00)
[2017-12-04 17:12] LABS: Glucose,Whole Blood 90 mg/dL (75-99)
[2017-12-04] MEDS: HEPARIN SODIUM,PORCINE 5,000 UNIT/ML 1 ML VIAL SQ SCH (20:21)
[2017-12-04 20:51] LABS: Glucose,Whole Blood 194 mg/dL (75-99)
[2017-12-04] MEDS ORDERED: FAMOTIDINE 20 MG/2 ML VIAL IV SCH (21:00)
[2017-12-05] MEDS ORDERED: VANCOMYCIN 1,750 MG in SODIUM CHLORIDE 0.9% 500 ML IVPB SCH (06:00)
[2017-12-05 06:29] LABS: Basophils # (A) 0.1 k/uL (0-0.2); Basophils % (A) 1 %; Eosinophils # (A) 0.3 k/uL (0-0.7); Eosinophils % (A) 5 %; HCT 34.3 % (39.0-53.0); HGB 10.9 gm/dL (13.0-17.5); Lymphocytes # (A) 1.2 k/uL (1.0-4.8); Lymphocytes % (A) 18 %; MCH 29.8 pg (25.0-35.0); MCHC 31.9 g/dL (31.0-37.0); MCV 93.4 fL (80.0-100.0); Mean Platelet Volume 7.9; Monocytes # (A) 0.5 k/uL (0-1.0); Monocytes % (A) 7 %; Neutrophils # (A) 4.2 k/uL (1.3-7.7); Neutrophils % (A) 67 %; Platelet Count 184 k/uL (150-450); RBC 3.67 m/uL (4.30-5.90); RDW 13.6 % (11.5-15.5); WBC 6.3 k/uL (3.8-10.6)
[2017-12-05 06:36] LABS: Glucose,Whole Blood 207 mg/dL (75-99)
[2017-12-05 06:37] LABS: Calcium 8.5 mg/dL (8.4-10.2); Potassium 4.3 mmol/L (3.5-5.1)
[2017-12-05] MEDS: PANTOPRAZOLE 40 MG/10 ML VIAL IV SCH (08:20)
[2017-12-05] MEDS: HEPARIN SODIUM,PORCINE 5,000 UNIT/ML 1 ML VIAL SQ SCH ×2 (08:20→21:17)
[2017-12-05 11:54] LABS: Glucose,Whole Blood 332 mg/dL (75-99)
--- NOTE | 2017-12-05 12:03 | FL ---
MODIFIED SWALLOW / DEGLUTITION STUDY DATE OF EXAM: 12/05/2017 CLINICAL HISTORY: 87-year-old male Dysphagia. Rule out aspiration. Patient with coughing with thin li quids and gurgling at the bedside. TECHNIQUE: Deglutition study is performed utilizing thin liquid barium, honey and nectar thick liqui d barium, barium thick applesauce, and barium coated cracker. Total fluoroscopy time: 4 minutes 55 seconds. Total images: None. Real-time fluoroscopy support was provided to speech pathology. COMPARISON: None. FINDINGS: Swallow initiation was delayed. There is also decreased AP propulsion with loss of bolus along the fl oor the mouth. There is no evidence of penetration or aspiration with any modality tested. No significant pharyngea l residue was appreciated. IMPRESSION: Delayed swallow and decreased AP propulsion within the oral cavity. No penetration or aspiration. Please refer to speech therapist notes for further details if necessary.
[2017-12-05] MEDS: INSULIN ASPART 100 UNIT/ML 1 ML 10 ML VIAL SQ SCH ×3 (12:47→21:17)
[2017-12-05 16:44] LABS: Glucose,Whole Blood 328 mg/dL (75-99)
--- NOTE | 2017-12-05 18:53 | PN ---
PROGRESS NOTE Mr. Bravo was admitted with an episode of slip and fall. He did not have syncope, but his heart rate was slow. He is in sinus rhythm with a left bundle. His beta ryann has been held. Unfortunately he received 25 mg of Toprol XL yesterday. Plan is to hold his beta ryann altogether. He is not symptomatic with bradycardia and hopefully his heart rate will get better. If it does not, down the road he may need a pacemaker, but I am not recommending one at this time. Vital signs are stable. JVD of 1 cm. No carotid bruit. S1, S2 heard normally. Bradycardia noted. Lungs reveal improved air entry. Abdomen and lower extremity exam unchanged. Patient is asymptomatic. Heart rate is in the 50s. He has a first-degree AV block and occasional Wenckebach phenomena. Underlying left bundle branch block is noted. No beta blockers. We will watch him closely and I will see him upon discharge in a couple of weeks. MMODL / IJN: [id number] /
--- NOTE | 2017-12-05 20:39 | P.PN ---
Subjective This is a pleasant 87 years old male with past medical history of heart failure , diabetes mellitus2, dementia, coronary artery disease, chronic kidney disease stage III, chronic pancreatitis is status post partial resection, who presents because of mental status and hypoglycemia. Patient came from [facility] home, and he notices his blood glucose to be low in the 40s. As per documents patient also fell prior to admission to the hospital Patient was on Levemir 30 units twice a day at home On admission patient vitals were stable however he was bradycardic. EKG on arrival here showed a marked sinus bradycardia with first-degree AV block. Subsequent EKG continued to show sinus bradycardia with first-degree AV block and left bundle branch block pattern. BC and BMP were unremarkable except for mildly elevated creatinine at 1.3 which is close to his baseline. LFTs were within normal limits. However his troponin was elevated at 0.06 review is negative. Chest x-ray: Possible right perihilar infiltrates CT of the head no acute changes. Patient already received antibiotics including vancomycin emergency room. Hold antibiotics for now 12/05/2017 pt is lying in bed comfortable , with no chest pain , or dysepna or dizziness/ pt is still bradycardic, cardiology team are following the pt . increase levemir to 33 U BID. Objective - Vital Signs Vital signs: Vital Signs Temp 97.5 F L 12/05/17 16:00 Pulse 39 L 12/05/17 16:00 Resp 18 12/05/17 16:00 BP 149/67 12/05/17 16:00 Pulse Ox 98 12/05/17 16:00 Intake & Output 12/05/17 12/05/17 12/06/17 06:59 18:59 06:59 Intake Total 350 1150 Output Total 800 450 Balance -450 700 Weight 81 kg Intake: Intake, IV Titration 350 150 Amount Dextrose 5%-0.45% NaCl 1, 350 150 000 ml @ 50 mls/hr IV . Q20H [facility] Rx#:[id number] Oral 1000 Output: Urine 800 450 Other: Voiding Method Urinal Urinal # Voids 5 1 # Bowel Movements 2 - Exam GENERAL: The patient is alert and oriented x3, not in any acute distress. Well developed, well nourished. HEENT: Pupils are round and equally reacting to light. EOMI. No scleral icterus. No conjunctival pallor. Normocephalic, atraumatic. No pharyngeal erythema. No thyromegaly. CARDIOVASCULAR: S1 and S2 present. No murmurs, rubs, or gallops. PULMONARY: Chest is clear to auscultation, no wheezing or crackles. ABDOMEN: Soft, nontender, nondistended, normoactive bowel sounds. No palpable organomegaly. MUSCULOSKELETAL: No joint swelling or deformity. EXTREMITIES: No cyanosis, clubbing, or pedal edema. NEUROLOGICAL: Gross neurological examination did not reveal any focal deficits. SKIN: No rashes. - Labs CBC & Chem 7: 12/05/17 05:49 12/05/17 05:49 Labs: Abnormal Lab Results - Last 24 Hours (Table) 12/04/17 12/05/17 12/05/17 Range/Units 20:50 05:49 05:49 RBC 3.67 L (4.30-5.90) m/uL Hgb 10.9 L (13.0-17.5) gm/dL Hct 34.3 L (39.0-53.0) % Chloride 113 H (98-107) mmol/L BUN 23 H (9-20) mg/dL Creatinine 1.31 H (0.66-1.25) mg/dL Glucose 198 H (74-99) mg/dL POC Glucose (mg/dL) 194 H (75-99) mg/dL 12/05/17 12/05/17 12/05/17 Range/Units 06:26 11:52 16:40 RBC (4.30-5.90) m/uL Hgb (13.0-17.5) gm/dL Hct (39.0-53.0) % Chloride (98-107) mmol/L BUN (9-20) mg/dL Creatinine (0.66-1.25) mg/dL Glucose (74-99) mg/dL POC Glucose (mg/dL) 207 H 332 H 328 H (75-99) mg/dL Microbiology - Last 24 Hours (Table) 12/04/17 09:37 Urine Culture - Final Urine,Voided
[2017-12-05 21:03] LABS: Glucose,Whole Blood 83 mg/dL (75-99)
[2017-12-06 06:02] LABS: Basophils % (A) 1 %; Eosinophils # (A) 0.4 k/uL (0-0.7); Eosinophils % (A) 6 %; HCT 33.8 % (39.0-53.0); HGB 10.7 gm/dL (13.0-17.5); Lymphocytes # (A) 1.3 k/uL (1.0-4.8); Lymphocytes % (A) 20 %; MCH 29.5 pg (25.0-35.0); MCHC 31.5 g/dL (31.0-37.0); MCV 93.4 fL (80.0-100.0); Mean Platelet Volume 8.9; Monocytes # (A) 0.4 k/uL (0-1.0); Monocytes % (A) 7 %; Neutrophils # (A) 4.1 k/uL (1.3-7.7); Neutrophils % (A) 66 %; Platelet Count 181 k/uL (150-450); RBC 3.61 m/uL (4.30-5.90); RDW 13.3 % (11.5-15.5); WBC 6.3 k/uL (3.8-10.6)
[2017-12-06 06:11] LABS: Glucose,Whole Blood 161 mg/dL (75-99)
[2017-12-06 06:15] LABS: Calcium 8.6 mg/dL (8.4-10.2); Potassium 4.2 mmol/L (3.5-5.1)
[2017-12-06] MEDS: INSULIN ASPART 100 UNIT/ML 1 ML 10 ML VIAL SQ SCH ×4 (06:35→21:35)
[2017-12-06] MEDS: HEPARIN SODIUM,PORCINE 5,000 UNIT/ML 1 ML VIAL SQ SCH ×2 (10:54→21:35)
[2017-12-06] MEDS: PANTOPRAZOLE 40 MG/10 ML VIAL IV SCH (10:58)
[2017-12-06 11:49] LABS: Glucose,Whole Blood 211 mg/dL (75-99)
[2017-12-06] MEDS: INSULIN DETEMIR 100 UNIT/ML 10 ML VIAL SQ SCH ×2 (13:00→21:35)
--- NOTE | 2017-12-06 14:09 | P.PN ---
Subjective Progress Note Date: 12/06/17 This is an 87-year-old gentleman who resides in an extended care facility. He has a known history of diabetes, hypertension, hyperlipidemia, presented to the hospital here after experiencing a fall at home. According to the patient he became unsteady and fell. He denies having any dizziness or lightheadedness, and states that he did not lose consciousness. EKG on arrival here showed a marked sinus bradycardia with first-degree AV block. Subsequent EKG continued to show sinus bradycardia with first-degree AV block and left bundle branch block pattern. CAT scan of the brain showed age-related atrophic and chronic small vessel ischemic change without acute intracranial process. Blood pressure on arrival here 168/70, heart rate in the 50s, 97% on 2 L of oxygen. Blood pressure at present 150/80, heart rate in the 40s to 60s, 97% on 2 L of oxygen. It was noted in the emergency room that the heart rate did go down to the 30 range and atropine was given times one. Patient did receive his beta ryann this morning. He was taking metoprolol 25 mg daily as an outpatient. We will place this on hold and check a TSH level. At the time of my examination , he denies any dizziness or lightheadedness, he appears to be alert and oriented 3. He does have rachael in the right side of his head where he incurred a laceration from his fall. White blood cell count 10.6, hemoglobin 12.4, platelet count 233. Sodium 143, potassium 4.2, BUN 23, creatinine 1.3. Troponin 0.064. 12/06/2017 Patient seenexamined this morning, heart rate continues to be in the 40 range. 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 Objective - Vital Signs Vital signs: Vital Signs Temp 98.0 F 12/06/17 11:59 Pulse 62 12/06/17 12:01 Resp 16 12/06/17 12:01 BP 134/64 12/06/17 11:59 Pulse Ox 99 12/06/17 11:59 Intake & Output 12/05/17 12/06/17 12/06/17 18:59 06:59 18:59 Intake Total 1150 540 240 Output Total 450 600 Balance 700 540 -360 Weight 74.5 kg Intake: Intake, IV Titration 150 Amount Dextrose 5%-0.45% NaCl 1, 150 000 ml @ 50 mls/hr IV . Q20H [facility] Rx#:[id number] Oral 1000 540 240 Output: Urine 450 600 Other: Voiding Method Urinal Urinal Diaper Incontinent Incontinent # Voids 1 2 # Bowel Movements 2 1 - Exam PHYSICAL EXAMINATION: GENERAL: This is an 87-year-old gentleman in no acute distress at the time of my examination HEENT: Laceration noted on the right side of the head with a 2-[address] normocephalic[address] Pupils equal, round. Sclera anicteric. Conjunctiva are clear. Mucous membranes of the mouth are moist. Neck is supple. There is no elevated jugular venous pressure. No carotid bruit is heard. HEART EXAMINATION: Heart S1, S2 normal. No murmur or gallop heard. CHEST EXAMINATION: Lungs are clear to auscultation and precussion. No chest wall tenderness is noted on palpation or with deep breathing. ABDOMEN: Soft, nontender. Bowel sounds are heard. No organomegaly noted. EXTREMITIES: 2+ peripheral pulses with no evidence of peripheral edema and no calf tenderness noted. NEUROLOGIC patient is awake, alert and oriented X3. - Labs CBC & Chem 7: 12/06/17 05:21 12/06/17 05:21 Labs: Abnormal Lab Results - Last 24 Hours (Table) 12/05/17 12/06/17 12/06/17 Range/Units 16:40 05:21 05:21 RBC 3.61 L (4.30-5.90) m/uL Hgb 10.7 L (13.0-17.5) gm/dL Hct 33.8 L (39.0-53.0) % Chloride 111 H (98-107) mmol/L Carbon Dioxide 21 L (22-30) mmol/L BUN 25 H (9-20) mg/dL Creatinine 1.44 H (0.66-1.25) mg/dL Glucose 149 H (74-99) mg/dL POC Glucose (mg/dL) 328 H (75-99) mg/dL 12/06/17 12/06/17 Range/Units 06:09 11:40 RBC (4.30-5.90) m/uL Hgb (13.0-17.5) gm/dL Hct (39.0-53.0) % Chloride (98-107) mmol/L Carbon Dioxide (22-30) mmol/L BUN (9-20) mg/dL Creatinine (0.66-1.25) mg/dL Glucose (74-99) mg/dL POC Glucose (mg/dL) 161 H 211 H (75-99) mg/dL Microbiology - Last 24 Hours (Table) 12/04/17 09:37 Urine Culture - Final Urine,Voided Assessment and Plan Plan: Assessment and plan #1 episode of fall with no clear-cut evidence of syncope, patient states he became unsteady and tripped and fell, denies passing out. #2 bradycardia, patient was on metoprolol 25 mg daily at home. He is noted to be in a marked sinus bradycardia with axis deviation, left bundle-branch block pattern #3 hypertension #4 diabetes #5 hyperlipidemia Plan we will continue to monitor the patient, if the heart rate remains slow in spite of being off beta blockers may require pacemaker. DNP note has been reviewed, I agree with a documented findings and plan of care. Patient was seen and examined.
[2017-12-06 14:24] LABS: Hemoglobin A1C 6.7 % (4.0-6.0)
[2017-12-06 17:01] LABS: Glucose,Whole Blood 210 mg/dL (75-99)
[2017-12-06 20:49] LABS: Glucose,Whole Blood 338 mg/dL (75-99)
--- NOTE | 2017-12-06 21:39 | P.PN ---
Subjective This is a pleasant 87 years old male with past medical history of heart failure , diabetes mellitus2, dementia, coronary artery disease, chronic kidney disease stage III, chronic pancreatitis is status post partial resection, who presents because of mental status and hypoglycemia. Patient came from [facility] home, and he notices his blood glucose to be low in the 40s. As per documents patient also fell prior to admission to the hospital Patient was on Levemir 30 units twice a day at home On admission patient vitals were stable however he was bradycardic. EKG on arrival here showed a marked sinus bradycardia with first-degree AV block. Subsequent EKG continued to show sinus bradycardia with first-degree AV block and left bundle branch block pattern. BC and BMP were unremarkable except for mildly elevated creatinine at 1.3 which is close to his baseline. LFTs were within normal limits. However his troponin was elevated at 0.06 review is negative. Chest x-ray: Possible right perihilar infiltrates CT of the head no acute changes. Patient already received antibiotics including vancomycin emergency room. Hold antibiotics for now 12/05/2017 pt is lying in bed comfortable , with no chest pain , or dysepna or dizziness/ pt is still bradycardic, cardiology team are following the pt . increase levemir to 33 U BID. 12/06/17 pt is no chest pain , no dyspnea , no dizziness, pt is still need in the hospital for heart rate monitoring , he is improving slightly after stopping beta ryann, however if not improving then he will need pacemaker Objective - Vital Signs Vital signs: Vital Signs Temp 97.9 F 12/06/17 16:17 Pulse 65 12/06/17 16:19 Resp 16 12/06/17 16:17 BP 139/73 12/06/17 16:17 Pulse Ox 95 12/06/17 16:17 Intake & Output 12/06/17 12/06/17 12/07/17 06:59 18:59 06:59 Intake Total 540 880 Output Total 1200 Balance 540 -320 Weight 74.5 kg 74.5 kg Intake: Oral 540 880 Output: Urine 1200 Other: Voiding Method Urinal Diaper Incontinent Incontinent # Voids 2 # Bowel Movements 1 - Exam GENERAL: The patient is alert and oriented x3, not in any acute distress. Well developed, well nourished. HEENT: Pupils are round and equally reacting to light. EOMI. No scleral icterus. No conjunctival pallor. Normocephalic, atraumatic. No pharyngeal erythema. No thyromegaly. CARDIOVASCULAR: S1 and S2 present. No murmurs, rubs, or gallops. PULMONARY: Chest is clear to auscultation, no wheezing or crackles. ABDOMEN: Soft, nontender, nondistended, normoactive bowel sounds. No palpable organomegaly. MUSCULOSKELETAL: No joint swelling or deformity. EXTREMITIES: No cyanosis, clubbing, or pedal edema. NEUROLOGICAL: Gross neurological examination did not reveal any focal deficits. SKIN: No rashes. - Labs CBC & Chem 7: 12/06/17 05:21 12/06/17 05:21 Labs: Abnormal Lab Results - Last 24 Hours (Table) 12/06/17 12/06/17 12/06/17 Range/Units 05:21 05:21 05:21 RBC 3.61 L (4.30-5.90) m/uL Hgb 10.7 L (13.0-17.5) gm/dL Hct 33.8 L (39.0-53.0) % Chloride 111 H (98-107) mmol/L Carbon Dioxide 21 L (22-30) mmol/L BUN 25 H (9-20) mg/dL Creatinine 1.44 H (0.66-1.25) mg/dL Glucose 149 H (74-99) mg/dL POC Glucose (mg/dL) (75-99) mg/dL Hemoglobin A1c 6.7 H (4.0-6.0) % 12/06/17 12/06/17 12/06/17 Range/Units 06:09 11:40 16:46 RBC (4.30-5.90) m/uL Hgb (13.0-17.5) gm/dL Hct (39.0-53.0) % Chloride (98-107) mmol/L Carbon Dioxide (22-30) mmol/L BUN (9-20) mg/dL Creatinine (0.66-1.25) mg/dL Glucose (74-99) mg/dL POC Glucose (mg/dL) 161 H 211 H 210 H (75-99) mg/dL Hemoglobin A1c (4.0-6.0) % 12/06/17 Range/Units 20:49 RBC (4.30-5.90) m/uL Hgb (13.0-17.5) gm/dL Hct (39.0-53.0) % Chloride (98-107) mmol/L Carbon Dioxide (22-30) mmol/L BUN (9-20) mg/dL Creatinine (0.66-1.25) mg/dL Glucose (74-99) mg/dL POC Glucose (mg/dL) 338 H (75-99) mg/dL Hemoglobin A1c (4.0-6.0) % Assessment and Plan Assessment: Altered mental status, mostly secondary to hypoglycemia, improved Hypoglycemia, resolved Bradycardia and elevated troponins, cardiology following the patient FAll, possibly secondary to above Possible right perihilar infiltrates, doubt pneumonia Dementia History of CHF History of CVA/TIA Plan: This is a pleasant 87 years old male who presents because of fall hypoglycemia, possible pneumonia and bradycardia. On admission patient hypoglycemia is been corrected and his altered mental status has improved. Cardiology team evaluated the patient for bradycardia. Continue with telemetry. Continue with same treatment. Continue with symptomatic treatment. Resume home medication. Patient also with possible perihilar infiltrates, however no leukocytosis or fever, patient with no respiratory symptoms, unlikely patient have pneumonia and at this point antibiotics were risks than benefits. DVT and GI prophylaxis. Patient is a clinical course of the patient DVT prophylaxis heparin GI prophylaxis Protonix PT/OT: Pending Prognosis is guarded
[2017-12-07] MEDS: INSULIN ASPART 100 UNIT/ML 1 ML 10 ML VIAL SQ SCH ×4 (06:10→21:22)
[2017-12-07 06:27] LABS: Glucose,Whole Blood 72 mg/dL (75-99)
[2017-12-07] MEDS: HEPARIN SODIUM,PORCINE 5,000 UNIT/ML 1 ML VIAL SQ SCH ×2 (07:44→21:02)
[2017-12-07] MEDS: PANTOPRAZOLE 40 MG/10 ML VIAL IV SCH (07:44)
[2017-12-07] MEDS: INSULIN DETEMIR 100 UNIT/ML 10 ML VIAL SQ SCH ×2 (07:50→21:02)
[2017-12-07 07:55] LABS: Calcium 8.8 mg/dL (8.4-10.2); Potassium 4.4 mmol/L (3.5-5.1)
--- NOTE | 2017-12-07 10:35 | ECHOF ---
Referral Reason:bradycardia MEASUREMENTS -------- HEIGHT: 177.8 cm WEIGHT: 74.4 kg BP: 134/64 RVIDd: 3.8 cm (< 3.3) IVSd: 1.1 cm (0.6 - 1.1) LVIDd: 5.8 cm (3.9 - 5.3) LVPWd: 1.2 cm (0.6 - 1.1) IVSs: 1.9 cm LVIDs: 4.0 cm LVPWs: 1.6 cm LA Diam: 3.7 cm (2.7 - 3.8) LAESV Index (A-L): 32.82 ml/m Ao Diam: 3.7 cm (2.0 - 3.7) AV Cusp: 2.1 cm (1.5 - 2.6) MV E Cong: 0.86 m/s MV DecT: 164 ms MV A Cong: 1.01 m/s MV E/A Ratio: 0.85 RAP: 5.00 mmHg RVSP: 45.06 mmHg FINDINGS -------- This was a technically difficult study with suboptimal views. The left ventricular size is normal. There is borderline concentric left ventricular hypertrophy. Overall left ventricular systolic function is mild-moderately impaired with, an EF between 40 - 45 % . The right ventricle is mild to moderately enlarged. LA is midly dilated 29-33ml/m2. The right atrium is normal in size. 3 ml of Lumason was utilized for enhancement of images. There is mild aortic valve sclerosis. The mitral valve leaflets are mildly thickened. Mild mitral annular calcification present. Mild m itral regurgitation is present. Mild tricuspid regurgitation present. There is mild pulmonary hypertension. The right ventricular systolic pressure, as measured by Doppler, is 45.06mmHg. Moderate pulmonic regurgitation. The aortic root size is normal. IVC Not well visulized. There is no pericardial effusion. CONCLUSIONS -------- 1. This was a technically difficult study with suboptimal views. 2. The left ventricular size is normal. 3. There is borderline concentric left ventricular hypertrophy. 4. Overall left ventricular systolic function is mild-moderately impaired with, an EF between 40 - 45 %. 5. The right ventricle is mild to moderately enlarged. 6. LA is midly dilated 29-33ml/m2. 7. The right atrium is normal in size. 8. 3 ml of Lumason was utilized for enhancement of images. 9. There is mild aortic valve sclerosis. 10. The mitral valve leaflets are mildly thickened. 11. Mild mitral annular calcification present. 12. Mild mitral regurgitation is present. 13. Mild tricuspid regurgitation present. 14. There is mild pulmonary hypertension. 15. The right ventricular systolic pressure, as measured by Doppler, is 45.06mmHg. 16. Moderate pulmonic regurgitation. 17. The aortic root size is normal. 18. IVC Not well visulized. 19. There is no pericardial effusion. GANG MINER: ORIN Olson
--- NOTE | 2017-12-07 11:37 | P.PN ---
Subjective Progress Note Date: 12/07/17 This is an 87-year-old gentleman who resides in an extended care facility. He has a known history of diabetes, hypertension, hyperlipidemia, presented to the hospital here after experiencing a fall at home. According to the patient he became unsteady and fell. He denies having any dizziness or lightheadedness, and states that he did not lose consciousness. EKG on arrival here showed a marked sinus bradycardia with first-degree AV block. Subsequent EKG continued to show sinus bradycardia with first-degree AV block and left bundle branch block pattern. CAT scan of the brain showed age-related atrophic and chronic small vessel ischemic change without acute intracranial process. Blood pressure on arrival here 168/70, heart rate in the 50s, 97% on 2 L of oxygen. Blood pressure at present 150/80, heart rate in the 40s to 60s, 97% on 2 L of oxygen. It was noted in the emergency room that the heart rate did go down to the 30 range and atropine was given times one. Patient did receive his beta ryann this morning. He was taking metoprolol 25 mg daily as an outpatient. We will place this on hold and check a TSH level. At the time of my examination , he denies any dizziness or lightheadedness, he appears to be alert and oriented 3. He does have rachael in the right side of his head where he incurred a laceration from his fall. White blood cell count 10.6, hemoglobin 12.4, platelet count 233. Sodium 143, potassium 4.2, BUN 23, creatinine 1.3. Troponin 0.064. 12/06/2017 Patient seenexamined this morning, heart rate continues to be in the 40 range. We will continue to monitor the patient, if the heart rate does not pick up man over the weekend patient may need implantation of a permanent pacemaker. 12/07/2017 Patient was seen and examined this morning, heart rate in the low 40s this morning, second-degree heart block type II. Dr. Ortiz was instructed to see and evaluate the patient this morning, had a lengthy discussion regarding the need for permanent pacemaker implantation, he has now been off of his beta ryann for a 72 hour period of time. We will remove EKG patches off the left side of the chest, Hibiclens and ChloraPrep the patient. Objective - Vital Signs Vital signs: Vital Signs Temp 97.6 F 12/07/17 08:00 Pulse 47 L 12/07/17 08:00 Resp 16 12/07/17 08:00 BP 142/66 12/07/17 08:00 Pulse Ox 100 12/07/17 08:00 Intake & Output 12/06/17 12/07/17 12/07/17 18:59 06:59 18:59 Intake Total 880 20 250 Output Total 1200 Balance -320 20 250 Weight 74.5 kg 74.6 kg Intake: IV 20 10 Invasive Line 2 20 10 Oral 880 240 Output: Urine 1200 Other: Voiding Method Diaper Diaper Urinal Incontinent Incontinent Diaper Incontinent # Voids 1 - Exam PHYSICAL EXAMINATION: GENERAL: This is an 87-year-old gentleman in no acute distress at the time of my examination HEENT: Laceration noted on the right side of the head with a 2-[address] normocephalic[address] Pupils equal, round. Sclera anicteric. Conjunctiva are clear. Mucous membranes of the mouth are moist. Neck is supple. There is no elevated jugular venous pressure. No carotid bruit is heard. HEART EXAMINATION: Heart S1, S2 normal. No murmur or gallop heard. CHEST EXAMINATION: Lungs are clear to auscultation and precussion. No chest wall tenderness is noted on palpation or with deep breathing. ABDOMEN: Soft, nontender. Bowel sounds are heard. No organomegaly noted. EXTREMITIES: 2+ peripheral pulses with no evidence of peripheral edema and no calf tenderness noted. NEUROLOGIC patient is awake, alert and oriented X3. - Labs CBC & Chem 7: 12/06/17 05:21 12/07/17 07:07 Labs: Abnormal Lab Results - Last 24 Hours (Table) 12/06/17 12/06/17 12/06/17 Range/Units 05:21 11:40 16:46 Chloride (98-107) mmol/L BUN (9-20) mg/dL Creatinine (0.66-1.25) mg/dL POC Glucose (mg/dL) 211 H 210 H (75-99) mg/dL Hemoglobin A1c 6.7 H (4.0-6.0) % 12/06/17 12/07/17 12/07/17 Range/Units 20:49 06:09 07:07 Chloride 110 H (98-107) mmol/L BUN 21 H (9-20) mg/dL Creatinine 1.27 H (0.66-1.25) mg/dL POC Glucose (mg/dL) 338 H 72 L (75-99) mg/dL Hemoglobin A1c (4.0-6.0) % Microbiology - Last 24 Hours (Table) 12/06/17 15:00 Urine Culture - Preliminary Urine,Clean Catch Assessment and Plan Plan: Assessment and plan #1 episode of fall with no clear-cut evidence of syncope, patient states he became unsteady and tripped and fell, denies passing out. #2 bradycardia, patient was on metoprolol 25 mg daily at home. He is noted to be in a marked sinus bradycardia with axis deviation, left bundle-branch block pattern #3 hypertension #4 diabetes #5 hyperlipidemia Plan Patient continues to be significantly bradycardic, and second-degree type II heart block. He was seen this morning by Dr. Ortiz who advised that the patient have a permanent pacemaker implantation, he has now been off his beta ryann for 72 hours. Patient is in agreement to proceed with implantation of a permanent pacemaker. EKG patches will be removed off the left side of his chest and he will be prepared with Hibiclens and Chlorprep. DNP note has been reviewed, I agree with a documented findings and plan of care. Patient was seen and examined.
[2017-12-07 11:55] LABS: Glucose,Whole Blood 250 mg/dL (75-99)
[2017-12-07] MEDS ORDERED: SODIUM CHLORIDE 0.9% 1,000 ML IV SCH ×2 (13:45)
[2017-12-07 16:49] LABS: Glucose,Whole Blood 210 mg/dL (75-99)
--- NOTE | 2017-12-07 17:48 | P.PN ---
Subjective This is a pleasant 87 years old male with past medical history of heart failure , diabetes mellitus2, dementia, coronary artery disease, chronic kidney disease stage III, chronic pancreatitis is status post partial resection, who presents because of mental status and hypoglycemia. Patient came from [facility] home, and he notices his blood glucose to be low in the 40s. As per documents patient also fell prior to admission to the hospital Patient was on Levemir 30 units twice a day at home On admission patient vitals were stable however he was bradycardic. EKG on arrival here showed a marked sinus bradycardia with first-degree AV block. Subsequent EKG continued to show sinus bradycardia with first-degree AV block and left bundle branch block pattern. BC and BMP were unremarkable except for mildly elevated creatinine at 1.3 which is close to his baseline. LFTs were within normal limits. However his troponin was elevated at 0.06 review is negative. Chest x-ray: Possible right perihilar infiltrates CT of the head no acute changes. Patient already received antibiotics including vancomycin emergency room. Hold antibiotics for now 12/05/2017 pt is lying in bed comfortable , with no chest pain , or dysepna or dizziness/ pt is still bradycardic, cardiology team are following the pt . increase levemir to 33 U BID. 12/06/17 pt is no chest pain , no dyspnea , no dizziness, pt is still need in the hospital for heart rate monitoring , he is improving slightly after stopping beta ryann, however if not improving then he will need pacemaker 12/07/2017 Patient keep a drop in heart rate unsafely, recommended for pacemaker by cardiology team probably on Saturday. Informed patient and he agrees. Patient denies chest pain or dizziness or dyspnea treatment Objective - Vital Signs Vital signs: Vital Signs Temp 98.9 F 12/07/17 16:30 Pulse 48 L 12/07/17 16:30 Resp 16 12/07/17 16:30 BP 149/64 12/07/17 16:30 Pulse Ox 99 12/07/17 16:30 Intake & Output 12/06/17 12/07/17 12/07/17 18:59 06:59 18:59 Intake Total 123 63 5097 Output Total 1200 Balance -085 50 8344 Weight 74.5 kg 74.6 kg Intake: IV 20 10 Invasive Line 2 20 10 Oral 880 1314 Output: Urine 1200 Other: Voiding Method Diaper Diaper Urinal Incontinent Incontinent Diaper Incontinent # Voids 1 3 # Bowel Movements 1 - Exam GENERAL: The patient is alert and oriented x3, not in any acute distress. Well developed, well nourished. HEENT: Pupils are round and equally reacting to light. EOMI. No scleral icterus. No conjunctival pallor. Normocephalic, atraumatic. No pharyngeal erythema. No thyromegaly. CARDIOVASCULAR: S1 and S2 present. No murmurs, rubs, or gallops. PULMONARY: Chest is clear to auscultation, no wheezing or crackles. ABDOMEN: Soft, nontender, nondistended, normoactive bowel sounds. No palpable organomegaly. MUSCULOSKELETAL: No joint swelling or deformity. EXTREMITIES: No cyanosis, clubbing, or pedal edema. NEUROLOGICAL: Gross neurological examination did not reveal any focal deficits. SKIN: No rashes. - Labs CBC & Chem 7: 12/06/17 05:21 12/07/17 07:07 Labs: Abnormal Lab Results - Last 24 Hours (Table) 12/06/17 12/07/17 12/07/17 Range/Units 20:49 06:09 07:07 Chloride 110 H (98-107) mmol/L BUN 21 H (9-20) mg/dL Creatinine 1.27 H (0.66-1.25) mg/dL POC Glucose (mg/dL) 338 H 72 L (75-99) mg/dL 12/07/17 12/07/17 Range/Units 11:49 16:26 Chloride (98-107) mmol/L BUN (9-20) mg/dL Creatinine (0.66-1.25) mg/dL POC Glucose (mg/dL) 250 H 210 H (75-99) mg/dL Microbiology - Last 24 Hours (Table) 12/06/17 15:00 Urine Culture - Preliminary Urine,Clean Catch Assessment and Plan Assessment: Altered mental status, mostly secondary to hypoglycemia, improved Hypoglycemia, resolved Bradycardia and elevated troponins, cardiology following the patient FAll, possibly secondary to above Possible right perihilar infiltrates, doubt pneumonia Dementia History of CHF History of CVA/TIA Plan: This is a pleasant 87 years old male who presents because of fall hypoglycemia, possible pneumonia and bradycardia. On admission patient hypoglycemia is been corrected and his altered mental status has improved. Cardiology team evaluated the patient for bradycardia. Continue with telemetry. Continue with same treatment. Continue with symptomatic treatment. Resume home medication. Patient also with possible perihilar infiltrates, however no leukocytosis or fever, patient with no respiratory symptoms, unlikely patient have pneumonia and at this point antibiotics were risks than benefits. DVT and GI prophylaxis. Patient is a clinical course of the patient DVT prophylaxis heparin GI prophylaxis Protonix PT/OT: Pending Prognosis is guarded
[2017-12-07 21:00] LABS: Glucose,Whole Blood 208 mg/dL (75-99)
[2017-12-08 06:19] LABS: Glucose,Whole Blood 189 mg/dL (75-99)
[2017-12-08] MEDS: INSULIN ASPART 100 UNIT/ML 1 ML 10 ML VIAL SQ SCH ×4 (06:27→21:27)
[2017-12-08 06:30] LABS: Calcium 8.5 mg/dL (8.4-10.2); Potassium 4.6 mmol/L (3.5-5.1)
[2017-12-08] MEDS: PANTOPRAZOLE 40 MG/10 ML VIAL IV SCH (08:25)
[2017-12-08] MEDS: HEPARIN SODIUM,PORCINE 5,000 UNIT/ML 1 ML VIAL SQ SCH ×2 (08:25→21:28)
[2017-12-08] MEDS: INSULIN DETEMIR 100 UNIT/ML 10 ML VIAL SQ SCH ×2 (08:36→21:27)
--- NOTE | 2017-12-08 10:11 | P.PN ---
Subjective Patient is lying flat in bed. His telemetry strips still show bradycardia secondary to AV node disease with intermittent 2-1 heart block and wide QRS at baseline/IVCD Pulse rate in the 50s but dips down into the 40s during 21 heart block he also has secondary AV node Wenckebach block He is afebrile blood pressure 144/60 mmHg normal respirations He appears to be a little wheezy and is on IV fluids today which I'm discontinuing Heart sounds are soft no murmurs or gallops Breath sounds are reduced bilaterally scattered crackles Abdomen is soft Extended is warm no edema Impression Symptomatic bradycardia with IVCD intermittent 2-1 heart block that has not responded to discontinuation of AV node blocking drugs for the last 72 hours and greater Chronic kidney disease stage III Normal potassium Diabetes Plan Dual-chamber pacemaker tomorrow Discussed with dizziness and the patient. Patient is agreeable to plan Objective - Vital Signs Vital signs: Vital Signs Temp 97.1 F L 12/08/17 08:00 Pulse 68 12/08/17 08:00 Resp 18 12/08/17 08:00 BP 159/67 12/08/17 08:00 Pulse Ox 96 12/08/17 08:00 Intake & Output 12/07/17 12/08/17 12/08/17 18:59 06:59 18:59 Intake Total 1444 660 Balance 1444 660 Weight 88.5 kg Intake: IV 10 10 Invasive Line 2 10 10 Intake, IV Titration 650 Amount Sodium Chloride 0.9% 1, 650 000 ml @ 50 mls/hr IV . Q20H COUNT INCLUDES THE [facility] Rx#:[id number] Oral 1434 Other: Voiding Method Urinal Urinal Urinal Diaper Diaper Diaper Incontinent Incontinent Incontinent # Voids 3 1 # Bowel Movements 1 - Labs CBC & Chem 7: 12/06/17 05:21 12/08/17 05:53 Labs: Abnormal Lab Results - Last 24 Hours (Table) 12/07/17 12/07/17 12/07/17 Range/Units 11:49 16:26 20:58 Chloride (98-107) mmol/L Creatinine (0.66-1.25) mg/dL Glucose (74-99) mg/dL POC Glucose (mg/dL) 250 H 210 H 208 H (75-99) mg/dL 12/08/17 12/08/17 Range/Units 05:53 06:10 Chloride 110 H (98-107) mmol/L Creatinine 1.28 H (0.66-1.25) mg/dL Glucose 179 H (74-99) mg/dL POC Glucose (mg/dL) 189 H (75-99) mg/dL Microbiology - Last 24 Hours (Table) 12/06/17 15:00 Urine Culture - Final Urine,Clean Catch
[2017-12-08 11:29] LABS: Glucose,Whole Blood 342 mg/dL (75-99)
--- NOTE | 2017-12-08 14:37 | P.PN ---
Subjective This is a pleasant 87 years old male with past medical history of heart failure , diabetes mellitus2, dementia, coronary artery disease, chronic kidney disease stage III, chronic pancreatitis is status post partial resection, who presents because of mental status and hypoglycemia. Patient came from [facility] home, and he notices his blood glucose to be low in the 40s. As per documents patient also fell prior to admission to the hospital Patient was on Levemir 30 units twice a day at home On admission patient vitals were stable however he was bradycardic. EKG on arrival here showed a marked sinus bradycardia with first-degree AV block. Subsequent EKG continued to show sinus bradycardia with first-degree AV block and left bundle branch block pattern. BC and BMP were unremarkable except for mildly elevated creatinine at 1.3 which is close to his baseline. LFTs were within normal limits. However his troponin was elevated at 0.06 review is negative. Chest x-ray: Possible right perihilar infiltrates CT of the head no acute changes. Patient already received antibiotics including vancomycin emergency room. Hold antibiotics for now 12/05/2017 pt is lying in bed comfortable , with no chest pain , or dysepna or dizziness/ pt is still bradycardic, cardiology team are following the pt . increase levemir to 33 U BID. 12/06/17 pt is no chest pain , no dyspnea , no dizziness, pt is still need in the hospital for heart rate monitoring , he is improving slightly after stopping beta ryann, however if not improving then he will need pacemaker 12/07/2017 Patient keep a drop in heart rate unsafely, recommended for pacemaker by cardiology team probably on Saturday. Informed patient and he agrees. Patient denies chest pain or dizziness or dyspnea treatment 12/08/2017 Patient still feeling well. He looks stable. However his heart rate is fluctuating between 50 and 68. Blood pressure is 165/76. Cardiology are following the patient. The plan or for pacemaker tomorrow Objective - Vital Signs Vital signs: Vital Signs Temp 96.1 F L 12/08/17 11:28 Pulse 60 12/08/17 11:28 Resp 18 12/08/17 11:28 BP 165/76 12/08/17 11:28 Pulse Ox 96 12/08/17 11:28 Intake & Output 12/07/17 12/08/17 12/08/17 18:59 06:59 18:59 Intake Total 1444 660 480 Balance 1444 660 480 Weight 88.5 kg Intake: IV 10 10 Invasive Line 2 10 10 Intake, IV Titration 650 Amount Sodium Chloride 0.9% 1, 650 000 ml @ 50 mls/hr IV . Q20H [facility] Rx#:[id number] Oral 8142 110 Other: Voiding Method Urinal Urinal Urinal Diaper Diaper Diaper Incontinent Incontinent Incontinent # Voids 3 1 2 # Bowel Movements 1 1 - Exam GENERAL: The patient is alert and oriented x3, not in any acute distress. Well developed, well nourished. HEENT: Pupils are round and equally reacting to light. EOMI. No scleral icterus. No conjunctival pallor. Normocephalic, atraumatic. No pharyngeal erythema. No thyromegaly. CARDIOVASCULAR: S1 and S2 present. No murmurs, rubs, or gallops. PULMONARY: Chest is clear to auscultation, no wheezing or crackles. ABDOMEN: Soft, nontender, nondistended, normoactive bowel sounds. No palpable organomegaly. MUSCULOSKELETAL: No joint swelling or deformity. EXTREMITIES: No cyanosis, clubbing, or pedal edema. NEUROLOGICAL: Gross neurological examination did not reveal any focal deficits. SKIN: No rashes. - Labs CBC & Chem 7: 12/06/17 05:21 12/08/17 05:53 Labs: Abnormal Lab Results - Last 24 Hours (Table) 12/07/17 12/07/17 12/08/17 Range/Units 16:26 20:58 05:53 Chloride 110 H (98-107) mmol/L Creatinine 1.28 H (0.66-1.25) mg/dL Glucose 179 H (74-99) mg/dL POC Glucose (mg/dL) 210 H 208 H (75-99) mg/dL 12/08/17 12/08/17 Range/Units 06:10 11:14 Chloride (98-107) mmol/L Creatinine (0.66-1.25) mg/dL Glucose (74-99) mg/dL POC Glucose (mg/dL) 189 H 342 H (75-99) mg/dL Microbiology - Last 24 Hours (Table) 12/06/17 15:00 Urine Culture - Final Urine,Clean Catch Assessment and Plan Assessment: Altered mental status, mostly secondary to hypoglycemia, improved Hypoglycemia, resolved Bradycardia and elevated troponins, cardiology following the patient FAll, possibly secondary to above Possible right perihilar infiltrates, doubt pneumonia Dementia History of CHF History of CVA/TIA Plan: This is a pleasant 87 years old male who presents because of fall hypoglycemia, possible pneumonia and bradycardia. On admission patient hypoglycemia is been corrected and his altered mental status has improved. Cardiology team evaluated the patient for bradycardia. Continue with telemetry. Continue with same treatment. Continue with symptomatic treatment. Resume home medication. Patient also with possible perihilar infiltrates, however no leukocytosis or fever, patient with no respiratory symptoms, unlikely patient have pneumonia and at this point antibiotics were risks than benefits. DVT and GI prophylaxis. Patient is a clinical course of the patient DVT prophylaxis heparin GI prophylaxis Protonix PT/OT: Pending Prognosis is guarded
[2017-12-08 16:54] LABS: Glucose,Whole Blood 294 mg/dL (75-99)
[2017-12-08 21:18] LABS: Glucose,Whole Blood 200 mg/dL (75-99)
[2017-12-09 06:00] LABS: Glucose,Whole Blood 182 mg/dL (75-99)
[2017-12-09] MEDS: INSULIN ASPART 100 UNIT/ML 1 ML 10 ML VIAL SQ SCH ×4 (06:24→21:25)
[2017-12-09 06:44] LABS: Potassium 4.4 mmol/L (3.5-5.1)
[2017-12-09] MEDS: HEPARIN SODIUM,PORCINE 5,000 UNIT/ML 1 ML VIAL SQ SCH ×2 (07:57→19:47)
[2017-12-09] MEDS: PANTOPRAZOLE 40 MG/10 ML VIAL IV SCH (07:57)
[2017-12-09] MEDS ORDERED: ceFAZolin 1,000 MG in SODIUM CHLORIDE 0.9% IRRIGATIO 250 ML IRRIGATION ONE (08:00)
[2017-12-09] MEDS ORDERED: ceFAZolin IN SWFI 2 GM/20 ML SYRINGE IVP ONE (08:49)
[2017-12-09] MEDS ORDERED: SODIUM CHLORIDE 0.9% 1,000 ML IV SCH (09:00)
[2017-12-09] MEDS ORDERED: IV FLUID CONTINUATION 800 ML IV ONE (09:09)
[2017-12-09] MEDS ORDERED: IOPAMIDOL-250 50ML BTL IV ONE (09:37)
[2017-12-09] MEDS ORDERED: LIDOCAINE 1% INJ 10MG/ML (20 ML MDV) ONE ×2 (09:45)
[2017-12-09] MEDS ORDERED: fentaNYL (PF) 50 MCG/ML 2 ML AMP IV ONE (09:58)
[2017-12-09] MEDS ORDERED: fentaNYL (PF) 50 MCG/ML 2 ML AMP ONE (09:58)
[2017-12-09] MEDS ORDERED: LIDOCAINE 1% INJ 10MG/ML (20 ML MDV) SQ ONE (09:59)
[2017-12-09] MEDS: LIDOCAINE 1% INJ 10MG/ML (20 ML MDV) SQ ONE ×2 (10:05→10:28)
[2017-12-09] MEDS ORDERED: ACETAMINOPHEN TAB 325 MG TAB PO PRN (10:41)
--- NOTE | 2017-12-09 10:43 | P.PCN ---
Preoperative Diagnosis: Patient underwent EP procedure under conscious sedation/moderate sedation, monitoring of the level of consciousness and physiologic parameters including but not limited to vital signs and oxygenation. Patient tolerated the procedure well without any acute complications. Start time: Stop time:Patient underwent EP procedure under conscious sedation/moderate sedation, monitoring of the level of consciousness and physiologic parameters including but not limited to vital signs and oxygenation. Patient tolerated the procedure well without any acute complications. Start time: 957 Stop time: 1038 Disposition: floor
--- NOTE | 2017-12-09 11:15 | PCN ---
PROCEDURE NOTE Patient of Dr. LEEANNA Caba who referred the patient for a dual-chamber pacemaker implantation for persistent IVCD, two-to-one AV block and severe bradycardia, symptomatic despite withholding medications for greater than 72 to 96 hours. Patient brought to the EP lab in a fasting state. Written informed consent was obtained prior to the procedure. The left shoulder area was prepped and draped as per protocol; 1% lidocaine used for local anesthesia. A 4 cm incision was made parallel to the deltopectoral groove, about 1.5 cm medial to it the incision was carried down to the level of the pectoralis muscle. A subfascial pocket was made. Hemostasis was assured. The left axillary vein was accessed at 2 separate points under fluoroscopy and via appropriately-sized introducer sheaths, 2 leads were positioned the right heart. The atrial lead was a [employer] model #1944, serial number [id number]. This was positioned in the right atrial appendage. This was a passive lead. P waves 3.3 mV. Pacing impedance 440 ohms, pacing threshold 0.5 V at 0.4 milliseconds. The RV lead was a screw-in lead positioned in the RV apex. This is a [address] [employer] model #2088TC, serial number [id number], R-waves 11 mV. Pacing impedance 680 ohms, pacing threshold 0.5 V at 0.4 milliseconds, 10 V test is negative. Both leads were secured to the underlying pectoralis fascia using 2 nonabsorbable sutures. Pocket was irrigated with antibiotic solution. Leads were connected to the generator ([employer] MRI #[id number], serial #[id number]). The leads and generator were then placed in the subfascial pocket. The wound was closed in 3 layers and dressed per protocol. The device was then programmed to DDD mode at 50-110 ppm with VIP mode on. Patient tolerated the procedure well without any acute complications. This has been programmed to the VIP mode. MMODL / IJN: [id number] /
[2017-12-09 11:51] LABS: Glucose,Whole Blood 163 mg/dL (75-99)
--- NOTE | 2017-12-09 11:53 | P.PN ---
Subjective This is a pleasant 87 years old male with past medical history of heart failure , diabetes mellitus2, dementia, coronary artery disease, chronic kidney disease stage III, chronic pancreatitis is status post partial resection, who presents because of mental status and hypoglycemia. Patient came from [facility] home, and he notices his blood glucose to be low in the 40s. As per documents patient also fell prior to admission to the hospital Patient was on Levemir 30 units twice a day at home On admission patient vitals were stable however he was bradycardic. EKG on arrival here showed a marked sinus bradycardia with first-degree AV block. Subsequent EKG continued to show sinus bradycardia with first-degree AV block and left bundle branch block pattern. BC and BMP were unremarkable except for mildly elevated creatinine at 1.3 which is close to his baseline. LFTs were within normal limits. However his troponin was elevated at 0.06 review is negative. Chest x-ray: Possible right perihilar infiltrates CT of the head no acute changes. Patient already received antibiotics including vancomycin emergency room. Hold antibiotics for now 12/05/2017 pt is lying in bed comfortable , with no chest pain , or dysepna or dizziness/ pt is still bradycardic, cardiology team are following the pt . increase levemir to 33 U BID. 12/06/17 pt is no chest pain , no dyspnea , no dizziness, pt is still need in the hospital for heart rate monitoring , he is improving slightly after stopping beta ryann, however if not improving then he will need pacemaker 12/07/2017 Patient keep a drop in heart rate unsafely, recommended for pacemaker by cardiology team probably on Saturday. Informed patient and he agrees. Patient denies chest pain or dizziness or dyspnea treatment 12/08/2017 Patient still feeling well. He looks stable. However his heart rate is fluctuating between 50 and 68. Blood pressure is 165/76. Cardiology are following the patient. The plan or for pacemaker tomorrow 12/09/2017 Patient is a status dual-chamber permanent pacemaker implantation. His Lyme bed comfortable awake. No chest pain or dyspnea. Vital stable Discharge plan in 24-48 hours Objective - Vital Signs Vital signs: Vital Signs Temp 97.9 F 12/09/17 00:00 Pulse 60 12/09/17 08:00 Resp 16 12/09/17 08:00 BP 171/81 12/09/17 08:00 Pulse Ox 94 L 12/09/17 08:00 Intake & Output 12/08/17 12/09/17 12/09/17 18:59 06:59 18:59 Intake Total 600 200 125 Output Total 400 Balance 600 -200 125 Weight 87.5 kg Intake: IV 200 125 0.9 140 Invasive Line 3 30 Invasive Line 4 30 Oral 600 Output: Urine 400 Other: Voiding Method Urinal Urinal Diaper Diaper Incontinent Incontinent # Voids 1 2 # Bowel Movements 1 - Exam GENERAL: The patient is alert and oriented x3, not in any acute distress. Well developed, well nourished. HEENT: Pupils are round and equally reacting to light. EOMI. No scleral icterus. No conjunctival pallor. Normocephalic, atraumatic. No pharyngeal erythema. No thyromegaly. CARDIOVASCULAR: S1 and S2 present. No murmurs, rubs, or gallops. PULMONARY: Chest is clear to auscultation, no wheezing or crackles. ABDOMEN: Soft, nontender, nondistended, normoactive bowel sounds. No palpable organomegaly. MUSCULOSKELETAL: No joint swelling or deformity. EXTREMITIES: No cyanosis, clubbing, or pedal edema. NEUROLOGICAL: Gross neurological examination did not reveal any focal deficits. SKIN: No rashes. - Labs CBC & Chem 7: 12/06/17 05:21 12/09/17 06:08 Labs: Abnormal Lab Results - Last 24 Hours (Table) 12/08/17 12/08/17 12/09/17 Range/Units 16:32 21:16 05:59 Creatinine (0.66-1.25) mg/dL Glucose (74-99) mg/dL POC Glucose (mg/dL) 294 H 200 H 182 H (75-99) mg/dL 12/09/17 Range/Units 06:08 Creatinine 1.28 H (0.66-1.25) mg/dL Glucose 178 H (74-99) mg/dL POC Glucose (mg/dL) (75-99) mg/dL Microbiology - Last 24 Hours (Table) 12/04/17 09:37 Urine Culture - Final Urine,Voided Assessment and Plan Assessment: Altered mental status, mostly secondary to hypoglycemia, improved Hypoglycemia, resolved Bradycardia and elevated troponins, cardiology following the patient FAll, possibly secondary to above Possible right perihilar infiltrates, doubt pneumonia Dementia History of CHF History of CVA/TIA Plan: This is a pleasant 87 years old male who presents because of fall hypoglycemia, possible pneumonia and bradycardia. On admission patient hypoglycemia is been corrected and his altered mental status has improved. Cardiology team evaluated the patient for bradycardia. Continue with telemetry. Continue with same treatment. Continue with symptomatic treatment. Resume home medication. Patient also with possible perihilar infiltrates, however no leukocytosis or fever, patient with no respiratory symptoms, unlikely patient have pneumonia and at this point antibiotics were risks than benefits. DVT and GI prophylaxis. Patient is a clinical course of the patient DVT prophylaxis heparin GI prophylaxis Protonix PT/OT: Pending Prognosis is guarded
[2017-12-09] MEDS: INSULIN DETEMIR 100 UNIT/ML 10 ML VIAL SQ SCH ×2 (12:17→21:24)
[2017-12-09] MEDS: ASPIRIN 81 MG PO SCH (12:18)
[2017-12-09] MEDS: LISINOPRIL 10 MG TAB PO SCH (12:18)
[2017-12-09] MEDS: ceFAZolin IN SWFI 2 GM/20 ML SYRINGE IVP SCH ×2 (15:21→21:44)
[2017-12-09 16:49] LABS: Glucose,Whole Blood 246 mg/dL (75-99)
[2017-12-09 21:09] LABS: Glucose,Whole Blood 267 mg/dL (75-99)
[2017-12-10] MEDS: ceFAZolin IN SWFI 2 GM/20 ML SYRINGE IVP SCH ×2 (04:04→13:41)
[2017-12-10 06:16] LABS: Glucose,Whole Blood 153 mg/dL (75-99)
[2017-12-10] MEDS: INSULIN ASPART 100 UNIT/ML 1 ML 10 ML VIAL SQ SCH ×4 (06:39→21:29)
[2017-12-10] MEDS: ATORVASTATIN 20 MG TAB PO SCH (07:44)
[2017-12-10] MEDS: HEPARIN SODIUM,PORCINE 5,000 UNIT/ML 1 ML VIAL SQ SCH ×2 (07:44→21:29)
[2017-12-10] MEDS: ASPIRIN 81 MG PO SCH (07:44)
[2017-12-10] MEDS: LISINOPRIL 10 MG TAB PO SCH (07:44)
[2017-12-10] MEDS: PANTOPRAZOLE 40 MG/10 ML VIAL IV SCH (07:44)
[2017-12-10] MEDS: INSULIN DETEMIR 100 UNIT/ML 10 ML VIAL SQ SCH ×2 (08:44→21:28)
--- NOTE | 2017-12-10 09:04 | XR ---
EXAMINATION TYPE: XR chest 2V DATE OF EXAM: 12/10/2017 COMPARISON: 12/04/2017 HISTORY: 87-year-old male lead placement check TECHNIQUE: Frontal and lateral views FINDINGS: Rightward patient rotation ultrasound normal cardiac and mediastinal contours. Heart mildly enlarged. Diffuse interstitial opacities persist. Trace effusions with patchy bibasilar densities. Left anteri or chest wall pacemaker generator with right atrial and right ventricular leads. IMPRESSION: Rotated exam makes direct comparison difficult. Findings may be minimally worsened. Correlate for CHF with interstitial pulmonary edema. Trace pleural effusions with adjacent bibasilar atelectasis and/o r infiltrates.
[2017-12-10] MEDS ORDERED: FUROSEMIDE 10 MG/ML 4 ML VIAL IV STA (10:44)
[2017-12-10 11:30] LABS: Glucose,Whole Blood 283 mg/dL (75-99)
--- NOTE | 2017-12-10 12:10 | P.PN ---
Subjective Progress Note Date: 12/10/17 This is an 87-year-old gentleman who resides in an extended care facility. He has a known history of diabetes, hypertension, hyperlipidemia, presented to the hospital here after experiencing a fall at home. According to the patient he became unsteady and fell. He denies having any dizziness or lightheadedness, and states that he did not lose consciousness. EKG on arrival here showed a marked sinus bradycardia with first-degree AV block. Subsequent EKG continued to show sinus bradycardia with first-degree AV block and left bundle branch block pattern. CAT scan of the brain showed age-related atrophic and chronic small vessel ischemic change without acute intracranial process. Blood pressure on arrival here 168/70, heart rate in the 50s, 97% on 2 L of oxygen. Blood pressure at present 150/80, heart rate in the 40s to 60s, 97% on 2 L of oxygen. It was noted in the emergency room that the heart rate did go down to the 30 range and atropine was given times one. Patient did receive his beta ryann this morning. He was taking metoprolol 25 mg daily as an outpatient. We will place this on hold and check a TSH level. At the time of my examination , he denies any dizziness or lightheadedness, he appears to be alert and oriented 3. He does have rachael in the right side of his head where he incurred a laceration from his fall. White blood cell count 10.6, hemoglobin 12.4, platelet count 233. Sodium 143, potassium 4.2, BUN 23, creatinine 1.3. Troponin 0.064. 12/06/2017 Patient seenexamined this morning, heart rate continues to be in the 40 range. We will continue to monitor the patient, if the heart rate does not potato picker over the weekend patient may need implantation of a permanent pacemaker. 12/07/2017 Patient was seen and examined this morning, heart rate in the low 40s this morning, second-degree heart block type II. Dr. Ortiz was instructed to see and evaluate the patient this morning, had a lengthy discussion regarding the need for permanent pacemaker implantation, he has now been off of his beta ryann for a 72 hour period of time. We will remove EKG patches off the left side of the chest, Hibiclens and ChloraPrep the patient. 12/10/2017 Patient underwent implantation of a permanent pacemaker yesterday by Dr. Ortiz. Device was interrogated this morning and is functioning appropriately. Chest x-ray did not reveal any evidence of a pneumothorax, however there was suggestion of CHF and early pulmonary edema. We will give the patient some IV Lasix today. Objective - Vital Signs Vital signs: Vital Signs Temp 98 F 12/10/17 03:57 Pulse 64 12/10/17 11:46 Resp 18 12/10/17 11:46 BP 108/61 12/10/17 11:46 Pulse Ox 97 12/10/17 11:46 Intake & Output 12/09/17 12/10/17 12/10/17 18:59 06:59 18:59 Intake Total 721 170 480 Balance 721 170 480 Weight 84 kg Intake: IV 125 170 0.9 170 Oral 596 480 Other: Voiding Method Urinal Diaper Incontinent # Voids 1 1 # Bowel Movements 0 - Exam PHYSICAL EXAMINATION: GENERAL: This is an 87-year-old gentleman in no acute distress at the time of my examination HEENT: Laceration noted on the right side of the head with a 2-[address] normocephalic[address] Pupils equal, round. Sclera anicteric. Conjunctiva are clear. Mucous membranes of the mouth are moist. Neck is supple. There is no elevated jugular venous pressure. No carotid bruit is heard. HEART EXAMINATION: Heart S1, S2 normal. No murmur or gallop heard. CHEST EXAMINATION: Lungs reveal rales bilaterally to the bases. No chest wall tenderness is noted on palpation or with deep breathing. Site of pacemaker implantation, dressing is dry and intact. ABDOMEN: Soft, nontender. Bowel sounds are heard. No organomegaly noted. EXTREMITIES: 2+ peripheral pulses with no evidence of peripheral edema and no calf tenderness noted. NEUROLOGIC patient is awake, alert and oriented X3. - Labs CBC & Chem 7: 12/06/17 05:21 12/09/17 06:08 Labs: Abnormal Lab Results - Last 24 Hours (Table) 12/09/17 12/09/17 12/10/17 Range/Units 16:26 21:08 06:15 POC Glucose (mg/dL) 246 H 267 H 153 H (75-99) mg/dL 12/10/17 Range/Units 11:29 POC Glucose (mg/dL) 283 H (75-99) mg/dL Microbiology - Last 24 Hours (Table) 12/04/17 09:37 Urine Culture - Final Urine,Voided
[2017-12-10 15:35] VITALS: BMI 26.5
--- NOTE | 2017-12-10 16:39 | P.PN ---
Subjective This is a pleasant 87 years old male with past medical history of heart failure , diabetes mellitus2, dementia, coronary artery disease, chronic kidney disease stage III, chronic pancreatitis is status post partial resection, who presents because of mental status and hypoglycemia. Patient came from [facility] home, and he notices his blood glucose to be low in the 40s. As per documents patient also fell prior to admission to the hospital Patient was on Levemir 30 units twice a day at home On admission patient vitals were stable however he was bradycardic. EKG on arrival here showed a marked sinus bradycardia with first-degree AV block. Subsequent EKG continued to show sinus bradycardia with first-degree AV block and left bundle branch block pattern. BC and BMP were unremarkable except for mildly elevated creatinine at 1.3 which is close to his baseline. LFTs were within normal limits. However his troponin was elevated at 0.06 review is negative. Chest x-ray: Possible right perihilar infiltrates CT of the head no acute changes. Patient already received antibiotics including vancomycin emergency room. Hold antibiotics for now 12/05/2017 pt is lying in bed comfortable , with no chest pain , or dysepna or dizziness/ pt is still bradycardic, cardiology team are following the pt . increase levemir to 33 U BID. 12/06/17 pt is no chest pain , no dyspnea , no dizziness, pt is still need in the hospital for heart rate monitoring , he is improving slightly after stopping beta ryann, however if not improving then he will need pacemaker 12/07/2017 Patient keep a drop in heart rate unsafely, recommended for pacemaker by cardiology team probably on Saturday. Informed patient and he agrees. Patient denies chest pain or dizziness or dyspnea treatment 12/08/2017 Patient still feeling well. He looks stable. However his heart rate is fluctuating between 50 and 68. Blood pressure is 165/76. Cardiology are following the patient. The plan or for pacemaker tomorrow 12/09/2017 Patient is a status dual-chamber permanent pacemaker implantation. His Lyme bed comfortable awake. No chest pain or dyspnea. Vital stable Discharge plan in 24-48 hours 12/10/2017 Patient seen and examined by me at this side. Patient is status post pacemaker implantation. Remains chest pain-free with no dyspnea. However patient was found have some pulmonary congestion and we will monitor him for 24 hours. Discharge planning in 24/48 hours. His sugar is running high, his Levemir is increased from 5 to 15 units twice a day. His home dose is 30 units Objective - Vital Signs Vital signs: Vital Signs Temp 98 F 12/10/17 03:57 Pulse 69 12/10/17 15:27 Resp 18 12/10/17 15:27 BP 133/67 12/10/17 15:27 Pulse Ox 98 12/10/17 15:27 Intake & Output 12/09/17 12/10/17 12/10/17 18:59 06:59 18:59 Intake Total 183 781 6885 Balance 560 644 0553 Weight 84 kg 84 kg Intake: IV 125 170 0.9 170 Oral 596 1200 Other: Voiding Method Urinal Diaper Incontinent # Voids 1 1 # Bowel Movements 0 - Exam GENERAL: The patient is alert and oriented x3, not in any acute distress. Well developed, well nourished. HEENT: Pupils are round and equally reacting to light. EOMI. No scleral icterus. No conjunctival pallor. Normocephalic, atraumatic. No pharyngeal erythema. No thyromegaly. CARDIOVASCULAR: S1 and S2 present. No murmurs, rubs, or gallops. PULMONARY: Chest is clear to auscultation, no wheezing or crackles. ABDOMEN: Soft, nontender, nondistended, normoactive bowel sounds. No palpable organomegaly. MUSCULOSKELETAL: No joint swelling or deformity. EXTREMITIES: No cyanosis, clubbing, or pedal edema. NEUROLOGICAL: Gross neurological examination did not reveal any focal deficits. SKIN: No rashes. - Labs CBC & Chem 7: 12/06/17 05:21 12/09/17 06:08 Labs: Abnormal Lab Results - Last 24 Hours (Table) 12/09/17 12/09/17 12/10/17 Range/Units 16:26 21:08 06:15 POC Glucose (mg/dL) 246 H 267 H 153 H (75-99) mg/dL 12/10/17 Range/Units 11:29 POC Glucose (mg/dL) 283 H (75-99) mg/dL Assessment and Plan Assessment: Altered mental status, mostly secondary to hypoglycemia, improved Hypoglycemia, resolved Bradycardia and elevated troponins, cardiology following the patient FAll, possibly secondary to above Possible right perihilar infiltrates, doubt pneumonia Dementia History of CHF History of CVA/TIA Plan: This is a pleasant 87 years old male who presents because of fall hypoglycemia, possible pneumonia and bradycardia. On admission patient hypoglycemia is been corrected and his altered mental status has improved. Cardiology team evaluated the patient for bradycardia. Continue with telemetry. Continue with same treatment. Continue with symptomatic treatment. Resume home medication. Patient also with possible perihilar infiltrates, however no leukocytosis or fever, patient with no respiratory symptoms, unlikely patient have pneumonia and at this point antibiotics were risks than benefits. DVT and GI prophylaxis. Patient is a clinical course of the patient DVT prophylaxis heparin GI prophylaxis Protonix PT/OT: Pending Prognosis is guarded
[2017-12-10 16:40] LABS: Glucose,Whole Blood 290 mg/dL (75-99)
[2017-12-10] MEDS: FUROSEMIDE 40 MG TAB PO SCH (18:33)
[2017-12-10 21:10] LABS: Glucose,Whole Blood 233 mg/dL (75-99)
[2017-12-11 06:28] LABS: Glucose,Whole Blood 188 mg/dL (75-99)
[2017-12-11] MEDS: INSULIN ASPART 100 UNIT/ML 1 ML 10 ML VIAL SQ SCH ×2 (06:31→12:42)
[2017-12-11] MEDS ORDERED: PANTOPRAZOLE 40 MG TABLET PO SCH (07:30)
[2017-12-11 08:27] VITALS: TEMP 98.1
[2017-12-11] MEDS: ATORVASTATIN 20 MG TAB PO SCH (09:05)
[2017-12-11] MEDS: ASPIRIN 81 MG PO SCH (09:05)
[2017-12-11] MEDS: INSULIN DETEMIR 100 UNIT/ML 10 ML VIAL SQ SCH (09:05)
[2017-12-11] MEDS: FUROSEMIDE 40 MG TAB PO SCH ×2 (09:05→15:13)
[2017-12-11] MEDS: LISINOPRIL 10 MG TAB PO SCH (09:05)
[2017-12-11] MEDS: HEPARIN SODIUM,PORCINE 5,000 UNIT/ML 1 ML VIAL SQ SCH (09:06)
[2017-12-11 11:45] LABS: Glucose,Whole Blood 186 mg/dL (75-99)
[2017-12-11 12:23] VITALS: BP 106/63; PULSE 75; RESP 14
--- NOTE | 2017-12-11 15:13 | P.PN ---
Subjective Progress Note Date: 12/11/17 This is an 87-year-old gentleman who resides in an extended care facility. He has a known history of diabetes, hypertension, hyperlipidemia, presented to the hospital here after experiencing a fall at home. According to the patient he became unsteady and fell. He denies having any dizziness or lightheadedness, and states that he did not lose consciousness. EKG on arrival here showed a marked sinus bradycardia with first-degree AV block. Subsequent EKG continued to show sinus bradycardia with first-degree AV block and left bundle branch block pattern. CAT scan of the brain showed age-related atrophic and chronic small vessel ischemic change without acute intracranial process. Blood pressure on arrival here 168/70, heart rate in the 50s, 97% on 2 L of oxygen. Blood pressure at present 150/80, heart rate in the 40s to 60s, 97% on 2 L of oxygen. It was noted in the emergency room that the heart rate did go down to the 30 range and atropine was given times one. Patient did receive his beta ryann this morning. He was taking metoprolol 25 mg daily as an outpatient. We will place this on hold and check a TSH level. At the time of my examination , he denies any dizziness or lightheadedness, he appears to be alert and oriented 3. He does have rachael in the right side of his head where he incurred a laceration from his fall. White blood cell count 10.6, hemoglobin 12.4, platelet count 233. Sodium 143, potassium 4.2, BUN 23, creatinine 1.3. Troponin 0.064. 12/06/2017 Patient seenexamined this morning, heart rate continues to be in the 40 range. We will continue to monitor the patient, if the heart rate does not slat pickler over the weekend patient may need implantation of a permanent pacemaker. 12/07/2017 Patient was seen and examined this morning, heart rate in the low 40s this morning, second-degree heart block type II. Dr. Ortiz was instructed to see and evaluate the patient this morning, had a lengthy discussion regarding the need for permanent pacemaker implantation, he has now been off of his beta ryann for a 72 hour period of time. We will remove EKG patches off the left side of the chest, Hibiclens and ChloraPrep the patient. 12/10/2017 Patient underwent implantation of a permanent pacemaker yesterday by Dr. Ortiz. Device was interrogated this morning and is functioning appropriately. Chest x-ray did not reveal any evidence of a pneumothorax, however there was suggestion of CHF and early pulmonary edema. We will give the patient some IV Lasix today. 12/11/2017 Patient seen today, breathing overall significantly improved. We'll discontinue the IV Lasix today and change him over to oral diuretics. He was given 40 mg daily at home, we'll put him on 40 mg by mouth twice a day. Objective - Vital Signs Vital signs: Vital Signs Temp 98.1 F 12/11/17 12:00 Pulse 75 12/11/17 12:00 Resp 14 12/11/17 12:00 BP 106/63 12/11/17 12:00 Pulse Ox 94 L 12/11/17 12:00 Intake & Output 12/10/17 12/11/17 12/11/17 18:59 06:59 18:59 Intake Total 1440 40 660 Output Total 1150 Balance 1440 -1110 660 Weight 84 kg 83.5 kg Intake: IV 40 60 Invasive Line 3 20 30 Invasive Line 4 20 30 Oral 1440 600 Output: Urine 1150 Other: Voiding Method Incontinent Incontinent # Voids 1 3 # Bowel Movements 0 - Exam PHYSICAL EXAMINATION: GENERAL: This is an 87-year-old gentleman in no acute distress at the time of my examination HEENT: Laceration noted on the right side of the head with a 2-[address] normocephalic[address] Pupils equal, round. Sclera anicteric. Conjunctiva are clear. Mucous membranes of the mouth are moist. Neck is supple. There is no elevated jugular venous pressure. No carotid bruit is heard. HEART EXAMINATION: Heart S1, S2 normal. No murmur or gallop heard. CHEST EXAMINATION: Lungs clear with fine crackles to the bases . No chest wall tenderness is noted on palpation or with deep breathing. Site of pacemaker implantation, dressing is dry and intact. ABDOMEN: Soft, nontender. Bowel sounds are heard. No organomegaly noted. EXTREMITIES: 2+ peripheral pulses with no evidence of peripheral edema and no calf tenderness noted. NEUROLOGIC patient is awake, alert and oriented X3. - Labs CBC & Chem 7: 12/06/17 05:21 12/09/17 06:08 Labs: Abnormal Lab Results - Last 24 Hours (Table) 12/10/17 12/10/17 12/11/17 Range/Units 16:38 21:08 06:27 POC Glucose (mg/dL) 290 H 233 H 188 H (75-99) mg/dL 12/11/17 Range/Units 11:41 POC Glucose (mg/dL) 186 H (75-99) mg/dL Assessment and Plan Plan: Assessment and plan #1 episode of fall with no clear-cut evidence of syncope, patient states he became unsteady and tripped and fell, denies passing out. #2 bradycardia, status post implantation of permanent pacemaker #3 hypertension #4 diabetes #5 hyperlipidemia #6 systolic congestive heart failure acute on chronic Plan We will discontinue the IV Lasix today and start the patient on oral diuretics. He may be able to be discharged home once cleared by primary and we'll follow him up in the office post discharge. DNP note has been reviewed, I agree with a documented findings and plan of care. Patient was seen and examined.
[2017-12-11 16:49] LABS: Glucose,Whole Blood 271 mg/dL (75-99)
[2017-12-11] MEDS ORDERED: INSULIN DETEMIR 100 UNIT/ML 10 ML VIAL SQ SCH (21:00)
== END 2017-12-11 18:14 | disposition home health service (06) | DRG 242 ==
LOC: EC 07:46 → 6SEL 10:16
PROVIDERS: ADMIT Internal Medicine; ATTEND Internal Medicine
PROC: 0JH606Z Insertion of Pacemaker, Dual Chamber into Chest Subcutaneous Tissue and Fascia, Open Approach (ICD-10-PCS; 2017-12-09)
PROC: 02HK3JZ Insertion of Pacemaker Lead into Right Ventricle, Percutaneous Approach (ICD-10-PCS; 2017-12-09)
PROC: 02H63JZ Insertion of Pacemaker Lead into Right Atrium, Percutaneous Approach (ICD-10-PCS; principal; 2017-12-09 09:00)
DX: I44.1 Atrioventricular block, second degree (principal); I50.23 Acute on chronic systolic (congestive) heart failure; G93.41 Metabolic encephalopathy; I13.0 Hypertensive heart and chronic kidney disease with heart failure and stage 1 through stage 4 chronic kidney disease, or unspecified chronic kidney disease; K86.1 Other chronic pancreatitis; I44.7 Left bundle-branch block, unspecified; E11.22 Type 2 diabetes mellitus with diabetic chronic kidney disease; E11.649 Type 2 diabetes mellitus with hypoglycemia without coma; E11.65 Type 2 diabetes mellitus with hyperglycemia; E78.5 Hyperlipidemia, unspecified; F03.90 Unspecified dementia, unspecified severity, without behavioral disturbance, psychotic disturbance, mood disturbance, and anxiety; I25.10 Atherosclerotic heart disease of native coronary artery without angina pectoris; I25.2 Old myocardial infarction; N18.3 Chronic kidney disease, stage 3 (moderate); W01.0XXA Fall on same level from slipping, tripping and stumbling without subsequent striking against object, initial encounter; Z79.4 Long term (current) use of insulin; Z79.899 Other long term (current) drug therapy; Z86.73 Personal history of transient ischemic attack (TIA), and cerebral infarction without residual deficits; Z87.440 Personal history of urinary (tract) infections; H26.9 Unspecified cataract; S01.91XA Laceration without foreign body of unspecified part of head, initial encounter; Z91.81 History of falling; Z90.411 Acquired partial absence of pancreas; R00.1 Bradycardia, unspecified; E55.9 Vitamin D deficiency, unspecified
CPT/HCPCS: 12001; 33208; 36415; 70450; 71046; 72125; 74230; 80048; 80053; 81003; 82550; 82553; 83036; 83690; 83735; 84443; 84484; 85025; 85610; 85730; 87086; 93005; 93306; 96360; 96361; 96365; 96367; 96375; 99284; 99285

== ENCOUNTER 2017-12-25 08:15 | Emergency (ER) | payer MEDICARE ==
[2017-12-25 08:25] VITALS: RESP 18; TEMP 97
[2017-12-25 08:36] LABS: Glucose,Whole Blood 60 mg/dL (75-99)
--- NOTE | 2017-12-25 08:41 | ED ---
General Adult HPI - General Chief complaint: Recheck/Abnormal Lab/Rx Stated complaint: hypoglycemia Time Seen by Provider: 12/25/17 08:17 Source: EMS, RN notes reviewed, old records reviewed Mode of arrival: EMS Limitations: no limitations, altered mental status - History of Present Illness Initial comments: This is an 87-year-old male who is brought in the ER for evaluation. Patient brought in the ER for evaluation of hypoglycemia and altered mental status. Patient is from extended care facility patient was altered with low blood sugar they're trying attempting to feed patient jelly elbow were unsuccessful. EMS did arrive at . [facility] give established line we'll give patient glucose and patient did have resolution of symptoms. Patient himself currently without complaint, is awake and alert is able to eat - Related Data Home Medications Medication Instructions Recorded Confirmed Insulin Detemir [Levemir Flextouch] 30 units SQ BID 03/10/17 12/04/17 Aspirin EC [Ecotrin Low Dose] 81 mg PO DAILY 12/02/17 12/04/17 Isosorbide Mononitrate ER [Imdur] 30 mg PO QAM 12/02/17 12/04/17 Multivitamins, Thera [Multivitamin 1 tab PO DAILY 12/02/17 12/04/17 (formulary)] Previous Rx's Medication Instructions Recorded Atorvastatin [Lipitor] 20 mg PO HS #90 tablet 12/09/17 Lisinopril [Prinivil] 10 mg PO DAILY #90 tab 12/09/17 Acetaminophen Tab [Tylenol] 650 mg PO Q6HR PRN tab 12/11/17 Furosemide [Lasix] 40 mg PO BID@0900,1600 #60 tab 12/11/17 Pantoprazole [Protonix] 40 mg PO AC-BRKFST #30 tablet. 12/11/17 Allergies Allergy/AdvReac Type Severity Reaction Status Date / Time No Known Allergies Allergy Verified 12/04/17 08:35 Review of Systems ROS Statement: Those systems with pertinent positive or pertinent negative responses have been documented in the HPI. ROS Other: All systems not noted in ROS Statement are negative. 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 Last Myocardial Infarction Date:: 03/12/17 History of Any Multi-Drug Resistant Organisms: None Reported Past Surgical History: Orthopedic Surgery Additional Past Surgical History / Comment(s): part of pancreas removed, L hip fracture with surgery. Past Anesthesia/Blood Transfusion Reactions: No Reported Reaction Past Psychological History: No Psychological Hx Reported Smoking Status: Never smoker Past Alcohol Use History: None Reported Past Drug Use History: None Reported - Past Family History Father Family Medical History: No Reported History Additional Family Medical History / Comment(s): Pt states his father was healthy and lived to be 103 yrs old. Mother Family Medical History: No Reported History Additional Family Medical History / Comment(s): Pt states his mother was healthy and lived into her 70s. General Exam Limitations: no limitations General appearance: alert, in no apparent distress Head exam: Present: atraumatic, normocephalic, normal inspection Eye exam: Present: normal appearance, PERRL, EOMI. Absent: scleral icterus, conjunctival injection, periorbital swelling ENT exam: Present: normal exam, mucous membranes moist Neck exam: Present: normal inspection. Absent: tenderness, meningismus, lymphadenopathy Respiratory exam: Present: normal lung sounds bilaterally. Absent: respiratory distress, wheezes, rales, rhonchi, stridor Cardiovascular Exam: Present: regular rate, normal rhythm, normal heart sounds. Absent: systolic murmur, diastolic murmur, rubs, gallop, clicks GI/Abdominal exam: Present: soft, normal bowel sounds. Absent: distended, tenderness, guarding, rebound, rigid Extremities exam: Present: normal inspection, full ROM, normal capillary refill. Absent: tenderness, pedal edema, joint swelling, calf tenderness Back exam: Present: normal inspection Neurological exam: Present: alert, oriented X3, CN II-XII intact Psychiatric exam: Present: normal affect, normal mood Skin exam: Present: warm, dry, intact, normal color. Absent: rash Course Vital Signs 12/25/17 08:16 Temperature 97 F L Pulse Rate 87 Respiratory 18 Rate Blood Pressure 185/79 O2 Sat by Pulse 95 Oximetry - Reevaluation(s) Reevaluation #1: 12/25/17 08:40 Patient is able to eat Medical Decision Making - Medical Decision Making 87 male in no distress coming in with hypoglycemic episode. I progressively Atrovent has resolved and patient can be discharged home - Lab Data Lab Results 12/25/17 Range/Units 08:28 POC Glucose (mg/dL) 60 L (75-99) mg/dL POC Glu Senior Education Specialist ID Amaris Padron Disposition Clinical Impression: Hypoglycemia Disposition: HOME SELF-CARE Condition: Good Instructions: Hypoglycemia in a Person with Diabetes (ED) Is patient prescribed a controlled substance at d/c from ED?: No Referrals: Ryan Diaz DO [Primary Care Provider] - 1-2 days
[2017-12-25 08:49] LABS: Glucose,Whole Blood 95 mg/dL (75-99)
--- NOTE | 2017-12-25 09:24 | XR ---
EXAMINATION TYPE: XR chest 2V DATE OF EXAM: 12/25/2017 COMPARISON: 12/10/2017 INDICATION: Pain hypoglycemia TECHNIQUE: Frontal and lateral views of the chest are obtained. FINDINGS: The heart size is normal. The pulmonary vasculature is normal. The lungs are clear. Electronic device overlies left chest. IMPRESSION: 1. No acute pulmonary process.
[2017-12-25 10:26] LABS: Glucose,Whole Blood 138 mg/dL (75-99)
[2017-12-25 10:34] VITALS: BP 139/96; PULSE 89
== END 2017-12-25 11:06 | disposition home or self-care (01) ==
LOC: EC 08:15
DX: E11.649 Type 2 diabetes mellitus with hypoglycemia without coma (principal); I50.9 Heart failure, unspecified; E11.22 Type 2 diabetes mellitus with diabetic chronic kidney disease; N18.3 Chronic kidney disease, stage 3 (moderate); I25.2 Old myocardial infarction; Z87.19 Personal history of other diseases of the digestive system; Z86.73 Personal history of transient ischemic attack (TIA), and cerebral infarction without residual deficits; Z98.890 Other specified postprocedural states; Z79.4 Long term (current) use of insulin; Z79.82 Long term (current) use of aspirin; Z79.899 Other long term (current) drug therapy
CPT/HCPCS: 36415; 71046; 99285

== ENCOUNTER 2017-12-25 21:39 | Inpatient (IN) | payer MEDICARE ==
--- NOTE | 2017-12-25 22:18 | ED ---
Altered Mental Status HPI - General Chief Complaint: Recheck/Abnormal Lab/Rx Stated Complaint: Hypoglycemia Time Seen by Provider: 12/25/17 21:42 Source: patient, EMS Mode of arrival: EMS Limitations: altered mental status - History of Present Illness Initial Comments: This patient is an 87-year-old man who comes from his long-term care facility. The staff there noted that he did not appear right. He was not appearing to respond to any of their questions. He seemed to be just sitting and staring off. They phoned EMS and his blood sugar was checked and found to be low. He was given oral glucose which brought his blood sugar up to 69. This was followed by IV dextrose which brought the sugar above 100. Currently, the patient does not have any complaints. He is not volunteering much history. He does answer yes and no questions. Patient denies pain or injury. He denies dyspnea. MD Complaint: altered mental status, decreased responsiveness Onset/Timin -: hour(s) Severity: severe Context: diabetes Associated Symptoms: denies other symptoms Treatments Prior to Arrival: glucose - Related Data Home Medications Medication Instructions Recorded Confirmed Insulin Detemir [Levemir Flextouch] 30 units SQ DAILY@1700 03/10/17 12/25/17 Aspirin EC [Ecotrin Low Dose] 81 mg PO DAILY 12/02/17 12/25/17 Isosorbide Mononitrate ER [Imdur] 30 mg PO QAM 12/02/17 12/25/17 Multivitamins, Thera [Multivitamin 1 tab PO DAILY 12/02/17 12/25/17 (formulary)] Cholecalciferol [Vitamin D3] 1,000 unit PO DAILY 12/25/17 12/25/17 Furosemide [Lasix] 40 mg PO BID@0800,1700 12/25/17 12/25/17 Insulin Aspart [NovoLOG Flexpen] See Protocol SQ ACHS 12/25/17 12/25/17 Insulin Detemir [Levemir Flextouch] 35 units SQ DAILY@0800 12/25/17 12/25/17 Menthol-Zinc Oxide Oint 1 applic TOPICAL BID PRN 12/25/17 12/25/17 [Calmoseptine Oint] Previous Rx's Medication Instructions Recorded Atorvastatin [Lipitor] 20 mg PO HS #90 tablet 12/09/17 Lisinopril [Prinivil] 10 mg PO DAILY #90 tab 12/09/17 Acetaminophen Tab [Tylenol] 650 mg PO Q6HR PRN tab 12/11/17 Pantoprazole [Protonix] 40 mg PO AC-BRKFST #30 tablet. 12/11/17 Allergies Allergy/AdvReac Type Severity Reaction Status Date / Time No Known Allergies Allergy Verified 12/25/17 08:43 Review of Systems ROS Statement: Those systems with pertinent positive or pertinent negative responses have been documented in the HPI. ROS Other: All systems not noted in ROS Statement are negative. 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 Last Myocardial Infarction Date:: 03/12/17 History of Any Multi-Drug Resistant Organisms: None Reported Past Surgical History: Orthopedic Surgery Additional Past Surgical History / Comment(s): part of pancreas removed, L hip fracture with surgery. Past Anesthesia/Blood Transfusion Reactions: No Reported Reaction Past Psychological History: No Psychological Hx Reported Smoking Status: Never smoker Past Alcohol Use History: None Reported Past Drug Use History: None Reported - Past Family History Father Family Medical History: No Reported History Additional Family Medical History / Comment(s): Pt states his father was healthy and lived to be 103 yrs old. Mother Family Medical History: No Reported History Additional Family Medical History / Comment(s): Pt states his mother was healthy and lived into her 70s. General Exam Limitations: no limitations General appearance: alert, in no apparent distress Head exam: Present: atraumatic, normocephalic Eye exam: Present: normal appearance, PERRL. Absent: scleral icterus, conjunctival injection ENT exam: Present: mucous membranes dry Neck exam: Present: normal inspection, full ROM. Absent: tenderness Respiratory exam: Present: rales (Bilateral bases). Absent: respiratory distress, wheezes, rhonchi, stridor Cardiovascular Exam: Present: regular rate, normal rhythm, normal heart sounds. Absent: systolic murmur, diastolic murmur, rubs, gallop GI/Abdominal exam: Present: soft. Absent: distended, tenderness, guarding, rebound, mass Extremities exam: Present: normal inspection, normal capillary refill. Absent: pedal edema, calf tenderness Neurological exam: Present: alert, CN II-XII intact, other (Patient not fully cooperative with the neurologic exam. At this point he is only responding to yes and no questions. He follows simple one step neurologic commands without obvious focal deficit.). Absent: motor sensory deficit Skin exam: Present: warm, dry, intact, normal color. Absent: rash Course Vital Signs 12/25/17 21:56 Temperature 99.9 F H Pulse Rate 79 Respiratory 18 Rate Blood Pressure 105/52 O2 Sat by Pulse 100 Oximetry Disposition Referrals: None,Stated [Primary Care Provider] - 1-2 days
--- NOTE | 2017-12-25 22:27 | XR ---
EXAMINATION TYPE: XR chest 1V portable DATE OF EXAM: 12/25/2017 COMPARISON: Today HISTORY: Altered mental status TECHNIQUE: Single frontal view of the chest is obtained. FINDINGS: There is slight coarsening of interstitial markings. There is no heart failure. Thoracic a caterina is atheromatous. There is left axillary pacemaker with the lead tips in the right ventricle. IMPRESSION: Mild fibrotic changes at the lung bases. No pulmonary consolidation or heart failure. No significant change.
[2017-12-25 22:44] LABS: Basophils # (A) 0.1 k/uL (0-0.2); Basophils % (A) 1 %; Eosinophils # (A) 0.2 k/uL (0-0.7); Eosinophils % (A) 2 %; HCT 38.4 % (39.0-53.0); HGB 12.1 gm/dL (13.0-17.5); Lymphocytes % (A) 7 %; MCH 29.3 pg (25.0-35.0); MCHC 31.5 g/dL (31.0-37.0); MCV 93.1 fL (80.0-100.0); Mean Platelet Volume 7.8; Monocytes % (A) 7 %; Neutrophils # (A) 10.6 k/uL (1.3-7.7); Neutrophils % (A) 82 %; Platelet Count 268 k/uL (150-450); RBC 4.13 m/uL (4.30-5.90); RDW 12.9 % (11.5-15.5); WBC 12.9 k/uL (3.8-10.6)
[2017-12-25 22:51] LABS: Albumin 3.3 g/dL (3.5-5.0); Calcium 9.2 mg/dL (8.4-10.2); Total Bilirubin 0.4 mg/dL (0.2-1.3); Total Protein 6.5 g/dL (6.3-8.2)
[2017-12-25] MEDS ORDERED: DEXTROSE 50%-WATER 50 ML SYRINGE IVP STA (23:01)
--- NOTE | 2017-12-25 23:06 | CT ---
EXAMINATION TYPE: CT brain wo con DATE OF EXAM: 12/25/2017 COMPARISON: 12/04/2017 HISTORY: Altered mental status. CT DLP: 837.5 mGycm Automated exposure control for dose reduction was used. FINDINGS: There is cerebral cortical atrophy. There is no mass effect nor midline shift. There is no sign of in tracranial hemorrhage. Left frontal scalp soft tissue swelling. The calvarium is intact. There is 4 c m area of hypodensity left posterior parietal lobe consistent with old infarct. There is extensive pa tchy hypodensity in the periventricular white matter. There is a 3 cm area of hypodensity right occipital lobe. IMPRESSION: CEREBRAL ATROPHY AND CHRONIC SMALL VESSEL ISCHEMIA. OLD LEFT POSTERIOR PARIETAL CORTICAL INFARCT. OLD RIGHT OCCIPITAL LOBE CORTICAL INFARCT. NO CHANGE COMPARED TO OLD EXAM.
[2017-12-25 23:15] LABS: Glucose,Whole Blood 132 mg/dL (75-99)
[2017-12-25 23:15] LABS: Glucose,Whole Blood 27 mg/dL (75-99)
[2017-12-25 23:18] LABS: Creatine Kinase MB 2.4 ng/mL (0.0-2.4)
[2017-12-25 23:23] LABS: Troponin I 0.077 ng/mL (0.000-0.034)
[2017-12-26 00:06] LABS: Glucose,Whole Blood 64 mg/dL (75-99)
[2017-12-26] MEDS ORDERED: DEXTROSE 5%-0.45% NACL 1,000 ML IV ONE (00:13)
[2017-12-26 00:24] LABS: Appearance,Urine Cloudy (Clear); Bacteria,Urine Moderate /hpf; Bilirubin,Urine Negative (Negative); Blood,Urine Trace (Negative); Color,Urine Light Yellow; Glucose,Urine (UA) Trace (Negative); Ketones,Urine Negative (Negative); Leukocyte Esterase,Urine Large (Negative); Mucus,Urine Rare /hpf; Nitrite,Urine Positive (Negative); Protein,Urine Negative (Negative); RBC,Urine 4 /hpf (0-5); Urobilinogen,Urine <2.0 mg/dL (<2.0); WBC,Urine 106 /hpf (0-5)
[2017-12-26] MEDS ORDERED: DEXTROSE 50%-WATER 50 ML SYRINGE IVP STA (00:42)
[2017-12-26 00:46] LABS: Glucose,Whole Blood 42 mg/dL (75-99)
[2017-12-26 01:08] LABS: Glucose,Whole Blood 125 mg/dL (75-99)
[2017-12-26 02:45] LABS: Glucose,Whole Blood 73 mg/dL (75-99)
[2017-12-26] MEDS ORDERED: LEVOFLOXACIN 750MG-D5W PMX 750 MG in DEXTROSE/WATER 1 150ML.BAG IVPB STA (03:24)
[2017-12-26] MEDS ORDERED: ACETAMINOPHEN TAB 325 MG TAB PO PRN (03:28)
[2017-12-26 04:16] LABS: Glucose,Whole Blood 74 mg/dL (75-99)
[2017-12-26 05:32] VITALS: BMI 24.4
[2017-12-26 07:51] LABS: Glucose,Whole Blood 147 mg/dL (75-99)
[2017-12-26] MEDS: ISOSORBIDE MONONITRATE ER 30 MG TAB.ER.24H PO SCH (08:12)
[2017-12-26] MEDS: LISINOPRIL 10 MG TAB PO SCH (08:12)
[2017-12-26] MEDS: CHOLECALCIFEROL 1,000 UNIT TAB PO SCH (08:13)
[2017-12-26] MEDS: PANTOPRAZOLE 40 MG TABLET PO SCH (08:13)
[2017-12-26] MEDS: FUROSEMIDE 40 MG TAB PO SCH ×2 (08:13→16:54)
[2017-12-26] MEDS: ASPIRIN 81 MG PO SCH (08:13)
[2017-12-26 11:33] LABS: Glucose,Whole Blood 240 mg/dL (75-99)
[2017-12-26] MEDS: MULTIVITAMINS, THERA 1 EACH TAB PO SCH (14:09)
[2017-12-26 16:50] LABS: Glucose,Whole Blood 363 mg/dL (75-99)
[2017-12-26] MEDS: INSULIN ASPART 100 UNIT/ML 1 ML 10 ML VIAL SQ SCH ×3 (18:09→21:44)
--- NOTE | 2017-12-26 19:19 | HP ---
HISTORY AND PHYSICAL DATE OF ADMISSION: 12/26/2017. DATE OF SERVICE: 12/26/2017. PRESENTING COMPLAINT: Altered mental status, low sugar. HISTORY OF PRESENTING COMPLAINT: This is an 87-year-old patient who is a resident of [facility] called [place]. Chronic stable medical conditions include underlying dementia, permanent pacemaker, chronic kidney disease, vitamin D deficiency. Normally uses a walker to get about. The patient was sent in because sugar was found to be very high and the patient was noted to become really lethargic and patient has become severely hypoglycemic. Sugars down in the 30s. The patient is rather groggy. He was sent down here for further management. The patient does takes Levemir 30 units in the evening and 35 units in the morning. I do not see any short-acting insulin prescribed. The patient is able to answer simple questions. The patient became more awake this afternoon when I saw him. He was treated for hypoglycemia. REVIEW OF SYSTEMS: CONSTITUTIONAL: Tired. HEENT: None. RESPIRATORY: None. CARDIOVASCULAR: None. GASTROINTESTINAL: None. GENITOURINARY: None. MUSCULOSKELETAL: None. DERMATOLOGICAL: Superficial bruising on the legs. HEMATOLOGIC: None. LYMPHATIC: None. PSYCHIATRY: Forgetful. NEUROLOGIC: None. PAST MEDICAL HISTORY: Congestive heart failure, EF 40% to 45%, stroke, diabetes, memory impairment, myocardial infarction, chronic kidney disease, pancreatitis with partial pancreatectomy in 2008, left eye cataract, vitamin D deficiency. PAST SURGICAL HISTORY: Orthopedic surgery, left hip fracture with surgery, partial pancreatectomy. SOCIAL HISTORY: Lives at [facility]. Uses a walker. Forgetful. No history of smoking or alcohol reported. FAMILY HISTORY: Reviewed. Father lived up to 103. HOME MEDICATIONS: 1. Protonix 40 mg with breakfast. 2. Multivitamin 1 tablet p.o. daily. 3. Calmoseptine 1 application topical daily p.r.n. 4. Prinivil 10 mg p.o. daily. 5. Imdur ER 30 mg daily. 6. Levemir 35 units in the morning, 30 units in the evening. 7. NovoLog FlexPen Plus sliding scale. 8. Lasix 40 mg b.i.d. 9. Vitamin D 3000 units p.o. daily. 10.Lipitor 20 mg at bedtime. 11.Aspirin 81 mg p.o. daily. 12.Tylenol 650 mg every 6 hours p.r.n. ALLERGIES: None. PHYSICAL EXAMINATION: Vital signs on presentation, temperature 99.9, pulse 79, respiratory rate 18, blood pressure 105/52, pulse ox 100 percent on room air. GENERAL APPEARANCE: Average built, sitting up, tired but awake, answering questions. EYES: Pupils equal. Conjunctivae normal. HEENT: External nose and ears normal. Oral cavity normal neck. NECK: JVD not raised. Mass not palpable. Respiratory effort normal. LUNGS: Fair air entry. CARDIOVASCULAR: 1st and 2nd heart sounds. No edema. CHEST: The patient has a pacemaker in the left anterior chest wall. ABDOMEN: Soft, nontender. Liver and spleen not palpable. LYMPHATIC: No lymph nodes palpable in the neck or axillae. PSYCHIATRY: The patient is able to answer simple questions. NEUROLOGICAL: Pupils equal. The patient is moving all 4 limbs. INVESTIGATIONS: White count 12.9, hemoglobin 12.1, potassium 4.0, BUN 42, creatinine 1.53, glucose was 133. Troponin 0.077. Albumin 3.3. Urine positive for leukocyte esterase, WBC, bacteria. ASSESSMENT: 1. Acute metabolic encephalopathy secondary to hypoglycemia. 2. Diabetes mellitus type 2, chronically on insulin, uncontrolled with hypo- and hyperglycemia. 3. Troponin leak, likely from hemodynamic mismatch, not a picture of acute coronary syndrome. 4. Chronic congestive heart failure from systolic dysfunction, ejection fraction 40% to 45%. 5. Permanent pacemaker. 6. 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 7. Acute urinary tract infection from cystitis, possibly precipitating sugars being up and down. 8. Chronic gait dysfunction, uses a walker. 9. Chronic kidney disease stage 3, probably from diabetic nephropathy. PLAN: Patient was initially given hypoglycemia protocol, put on IV Levaquin for the UTI. We will stop the morning dose of Levemir and leave the evening dose of Levemir. This evening sugar did go up to 300. Will also use 8 units of Humalog scheduled with meals. Will give Lovenox for DVT prophylaxis. MMODL / IJN: [id number] /
[2017-12-26 20:34] LABS: Glucose,Whole Blood 111 mg/dL (75-99)
[2017-12-26] MEDS ORDERED: INSULIN DETEMIR 100 UNIT/ML 10 ML VIAL SQ SCH (21:00)
[2017-12-26] MEDS: ATORVASTATIN 20 MG TAB PO SCH (21:45)
[2017-12-27] MEDS ORDERED: LEVOFLOXACIN 750MG-D5W PMX 750 MG in DEXTROSE/WATER 1 150ML.BAG IVPB SCH (05:00)
[2017-12-27 07:12] LABS: Glucose,Whole Blood 68 mg/dL (75-99)
[2017-12-27] MEDS: INSULIN ASPART 100 UNIT/ML 1 ML 10 ML VIAL SQ SCH ×6 (07:19→22:48)
[2017-12-27 07:47] LABS: Glucose,Whole Blood 85 mg/dL (75-99)
[2017-12-27 10:20] LABS: Glucose,Whole Blood 167 mg/dL (75-99)
[2017-12-27] MEDS: LISINOPRIL 10 MG TAB PO SCH (10:25)
[2017-12-27] MEDS: PANTOPRAZOLE 40 MG TABLET PO SCH (10:25)
[2017-12-27] MEDS: CHOLECALCIFEROL 1,000 UNIT TAB PO SCH (10:25)
[2017-12-27] MEDS: MULTIVITAMINS, THERA 1 EACH TAB PO SCH (10:25)
[2017-12-27] MEDS: ISOSORBIDE MONONITRATE ER 30 MG TAB.ER.24H PO SCH (10:25)
[2017-12-27] MEDS: FUROSEMIDE 40 MG TAB PO SCH (10:25)
[2017-12-27] MEDS: ASPIRIN 81 MG PO SCH (10:25)
[2017-12-27] MEDS ORDERED: INSULIN ASPART 100 UNIT/ML 1 ML 10 ML VIAL SQ ONE (10:26)
[2017-12-27 11:28] LABS: Glucose,Whole Blood 170 mg/dL (75-99)
[2017-12-27 16:49] LABS: Glucose,Whole Blood 164 mg/dL (75-99)
[2017-12-27] MEDS ORDERED: INSULIN ASPART 100 UNIT/ML 1 ML 10 ML VIAL SQ SCH (17:30)
[2017-12-27] MEDS ORDERED: LACTATED RINGERS 1,000 ML IV SCH (19:45)
[2017-12-27 20:16] LABS: Glucose,Whole Blood 89 mg/dL (75-99)
[2017-12-27] MEDS ORDERED: INSULIN DETEMIR 100 UNIT/ML 10 ML VIAL SQ SCH ×2 (21:00)
[2017-12-27] MEDS: ATORVASTATIN 20 MG TAB PO SCH (21:13)
[2017-12-27 21:47] LABS: Glucose,Whole Blood 78 mg/dL (75-99)
--- NOTE | 2017-12-27 22:13 | PN ---
PROGRESS NOTE DATE OF SERVICE: 12/27/2017 PRESENTING COMPLAINT: Hypoglycemia. INTERVAL HISTORY: This is a patient who is an [facility] resident. He presented with hypoglycemia, altered mental status. Patient's insulin was cut back. Still running low. Patient did get Levemir, only 30 units last night. The patient normally takes double the dose of that. Patient is eating better today. The patient's sugars were in the 80s this morning. REVIEW OF SYSTEMS: Done for constitutional, cardiovascular, GI, pulmonary; relevant findings as above. CURRENT MEDICATIONS: Reviewed. They include Levemir and NovoLog dose was cut back. PHYSICAL EXAMINATION: Temperature 98.5, pulse 76, respiration 17, blood pressure 106/50, pulse ox 97% on 2 L. Repeat blood pressure was found to be 82/49. ASSESSMENT: 1. Acute metabolic encephalopathy secondary to hypoglycemia, improved. 2. Diabetes mellitus, type 2, chronically on insulin, uncontrolled with both hypo- and hyperglycemia. 3. Troponin leak, likely from hemodynamic mismatch; not a picture of acute coronary syndrome. 4. Chronic congestive heart failure from systolic dysfunction, ejection fraction 40% to 45%. 5. Permanent pacemaker. 6. Moderate cognitive impairment from late-onset Alzheimer's dementia. 7. Acute urinary tract infection from cystitis, possibly causing a change in Accu- Cheks. 8. Chronic gait dysfunction. Uses a walker. 9. Chronic kidney disease, stage III, probably from diabetic nephropathy. PLAN: Patient's Levemir will be further dropped down to 16 units. Will cut back also the Humalog schedule to 4 units. Will gently hydrate the patient, given the low EF, at 75 mL/hour for a total of 1000 mL. Prognosis is guarded. Will hold off the Lasix for tonight because of the hypotension. I will also get a cardiology opinion in the morning. MMODL / IJN: [id number] /
[2017-12-28] MEDS: FUROSEMIDE 40 MG TAB PO SCH ×2 (01:51→09:22)
[2017-12-28 02:24] LABS: Glucose,Whole Blood 108 mg/dL (75-99)
[2017-12-28 07:34] LABS: Glucose,Whole Blood 67 mg/dL (75-99)
[2017-12-28 08:11] LABS: Glucose,Whole Blood 99 mg/dL (75-99)
[2017-12-28 08:19] LABS: Basophils # (A) 0.1 k/uL (0-0.2); Basophils % (A) 1 %; Eosinophils # (A) 0.3 k/uL (0-0.7); Eosinophils % (A) 3 %; HCT 35.2 % (39.0-53.0); Lymphocytes # (A) 1.6 k/uL (1.0-4.8); Lymphocytes % (A) 17 %; MCH 30.7 pg (25.0-35.0); MCHC 34.1 g/dL (31.0-37.0); Mean Platelet Volume 7.7; Monocytes # (A) 0.6 k/uL (0-1.0); Monocytes % (A) 6 %; Neutrophils % (A) 72 %; Platelet Count 220 k/uL (150-450); RBC 3.91 m/uL (4.30-5.90); RDW 12.6 % (11.5-15.5); WBC 9.8 k/uL (3.8-10.6)
[2017-12-28 08:21] LABS: Potassium 4.3 mmol/L (3.5-5.1)
[2017-12-28] MEDS: INSULIN ASPART 100 UNIT/ML 1 ML 10 ML VIAL SQ SCH ×7 (09:16→21:31)
[2017-12-28] MEDS: LISINOPRIL 10 MG TAB PO SCH (09:22)
[2017-12-28] MEDS: MULTIVITAMINS, THERA 1 EACH TAB PO SCH (09:24)
[2017-12-28] MEDS: ASPIRIN 81 MG PO SCH (09:24)
[2017-12-28] MEDS: PANTOPRAZOLE 40 MG TABLET PO SCH (09:24)
[2017-12-28 11:13] LABS: Glucose,Whole Blood 267 mg/dL (75-99)
[2017-12-28] MEDS: CHOLECALCIFEROL 1,000 UNIT TAB PO SCH (12:56)
[2017-12-28 17:07] LABS: Glucose,Whole Blood 164 mg/dL (75-99)
--- NOTE | 2017-12-28 18:36 | PN ---
PROGRESS NOTE DATE OF SERVICE: 12/28/2017. PRESENTING COMPLAINT: Hypoglycemia. INTERVAL HISTORY: This patient [facility] resident, had an episode of hypoglycemia. Insulin dose Levemir continues to be cut back. This morning again dropped to about 71. Has been eating well otherwise. Humalog was cut back. The patient also being treated for UTI. Otherwise patient is rather comfortable. REVIEW OF SYSTEMS: Done for constitutional, cardiovascular, GI, pulmonary; relevant findings as above. CURRENT MEDICATIONS: Reviewed that include NovoLog 4 units with meals and Levemir 12 units with supper and IV Levaquin. PHYSICAL EXAMINATION: VITAL SIGNS: Temperature 98.2, pulse 55, respiratory 18, blood pressure 105/44, pulse ox 98% on room air. GENERAL APPEARANCE: Sitting up, comfortable. EYES: Pupils equal. Conjunctivae normal. HEENT: External appearance of nose and ears normal. Oral cavity normal. NECK JVD not raised. Mass not palpable. RESPIRATORY effort normal. LUNGS are clear. CARDIOVASCULAR: 1st and 2nd sounds normal. No edema. ABDOMEN: Soft, nontender. PSYCHIATRY: Awake, answering simple questions. INVESTIGATIONS: Accu-Cheks 67, 99, 267. ASSESSMENT: 1. Acute metabolic encephalopathy secondary to hypoglycemia, improved. 2. Diabetes mellitus type 2, chronically on insulin uncontrolled with both hypo and hyperglycemia. 3. Troponin leak likely from hemodynamic mismatch, not a picture of acute coronary syndrome. 4. Chronic congestive heart failure from systolic dysfunction, EF 40-45 percent. 5. Permanent pacemaker. 6. Moderate cognitive impairment from late onset Alzheimer's dementia. 7. Acute urinary tract infection from cystitis. 8. Chronic gait dysfunction, uses a walker. 9. Chronic kidney stage 3 from diabetic nephropathy. PLAN: We will cut back on patient's Levemir further to 12 units, leave the patient on Humalog 4 units. The patient's Lasix had been held off. We will see how the sugars do. We will also DC patient's Levaquin and switch to oral Keflex. MMODL / IJN: [id number] /
[2017-12-28 20:35] LABS: Glucose,Whole Blood 198 mg/dL (75-99)
[2017-12-28] MEDS: ATORVASTATIN 20 MG TAB PO SCH (21:31)
[2017-12-28] MEDS: INSULIN DETEMIR 100 UNIT/ML 10 ML VIAL SQ SCH (21:32)
[2017-12-28] MEDS: CEPHALEXIN 250 MG CAP PO SCH (21:33)
--- NOTE | 2017-12-28 21:56 | CONS ---
CONSULTATION CHIEF COMPLAINT: Urinary tract infection. Mr. Bravo is an 87-year-old gentleman who is in an adult care facility, has multiple underlying medical problems including dementia, permanent pacemaker, chronic kidney disease. The patient was brought in because of elevated blood sugars, lethargy and hyperglycemia. Cardiology has been consulted because of mild troponin elevation. At the time of my evaluation, he denies any symptoms and states that he wishes to go home. PAST MEDICAL HISTORY: Significant for dementia, diabetes, permanent pacemaker, cardiomyopathy, and chronic renal insufficiency. MEDICATIONS: At home included Protonix, multivitamin, Prinivil, Imdur, insulin, Lasix, Lipitor and aspirin. ALLERGIES: There are no known drug allergies. FAMILY HISTORY: Negative for premature coronary artery disease. SOCIAL HISTORY: Denies current smoking, EtOH abuse, or drug abuse. REVIEW OF SYSTEMS: I am unable to obtain from the patient. EXAM: He is comfortable at rest. Vital signs are stable. There is no jugular venous distention. Chest exam reveals occasional rhonchi bilaterally. Heart exam reveals first and second heart sounds. No gallop. Abdomen is soft. Exam of extremities did not reveal any edema. Peripheral pulses are felt. LAB: Showed that the troponin is elevated at 0.07 and 06. EKG shows paced rhythm. ASSESSMENT: 1. Elevated troponin probably related to renal insufficiency. Creatinine is elevated at 1.9. 2. History of cardiomyopathy. 3. History of permanent pacemaker. PLAN: From cardiac standpoint, he is looking good. I will obtain a 2D echo to assess LV function and wall motion. Continue with the current medical therapy including the Lipitor, aspirin and p.o. Lasix along with Zestril. Please resume the nitrates that he was on at home. No further workup for the elevated troponin. MMODL / IJN: [id number] /
[2017-12-29] MEDS ORDERED: LEVOFLOXACIN 750MG-D5W PMX 750 MG in DEXTROSE/WATER 1 150ML.BAG IVPB SCH (05:00)
[2017-12-29 07:33] LABS: Glucose,Whole Blood 87 mg/dL (75-99)
[2017-12-29] MEDS: INSULIN ASPART 100 UNIT/ML 1 ML 10 ML VIAL SQ SCH ×7 (07:48→20:20)
[2017-12-29] MEDS: CEPHALEXIN 250 MG CAP PO SCH ×3 (07:56→21:31)
[2017-12-29] MEDS: LISINOPRIL 10 MG TAB PO SCH (07:56)
[2017-12-29] MEDS: PANTOPRAZOLE 40 MG TABLET PO SCH (07:56)
[2017-12-29] MEDS: CHOLECALCIFEROL 1,000 UNIT TAB PO SCH (07:56)
[2017-12-29] MEDS: FUROSEMIDE 40 MG TAB PO SCH (07:57)
[2017-12-29] MEDS: ASPIRIN 81 MG PO SCH (07:57)
[2017-12-29 08:11] LABS: Calcium 8.7 mg/dL (8.4-10.2); Potassium 3.9 mmol/L (3.5-5.1)
[2017-12-29 11:43] LABS: Glucose,Whole Blood 154 mg/dL (75-99)
[2017-12-29] MEDS: MULTIVITAMINS, THERA 1 EACH TAB PO SCH (13:12)
--- NOTE | 2017-12-29 14:10 | PN ---
PROGRESS NOTE 87-year-old gentleman who was admitted to the hospital with confusion and hypoglycemia. Cardiology had been consulted because of elevated troponin. He is looking better today. He is less confused. Family is here and patient wants to go home. He lives in an assisted living facility. I was going to do an echocardiogram on him, which was not done and the patient already had an echo done just 3 weeks ago that showed an ejection fraction of 40% to 45%. This morning, patient is stable clinically, free of symptoms. Vital signs are stable. Chest exam reveals good air entry bilaterally. Heart exam reveals first and second heart sounds. No gallop. Exam of extremities did not reveal any edema. ASSESSMENT: Troponin elevation probably related to renal insufficiency. No further cardiac workup at this time. Patient is stable to be discharged back to the assisted living care facility. MMODL / IJN: [id number] /
[2017-12-29 16:48] LABS: Glucose,Whole Blood 202 mg/dL (75-99)
[2017-12-29 19:59] LABS: Glucose,Whole Blood 220 mg/dL (75-99)
[2017-12-29] MEDS: INSULIN DETEMIR 100 UNIT/ML 10 ML VIAL SQ SCH (20:20)
[2017-12-29] MEDS: ATORVASTATIN 20 MG TAB PO SCH (20:20)
--- NOTE | 2017-12-29 23:40 | PN ---
PROGRESS NOTE DATE OF SERVICE: 09/29/2017. PRESENTING COMPLAINT: Hypoglycemia. INTERVAL HISTORY: This patient is an [facility] resident, had an episode of hypoglycemia. Continued to run low and Levemir had to be significantly cut back. Doing better. Has been tolerating a diet well. Sugars are more reasonable now. The patient also was treated for UTI. REVIEW OF SYSTEMS: Done for constitutional, cardiovascular, GI, pulmonary; relevant findings as above. CURRENT MEDICATIONS: Reviewed, that include Levemir 10 units and NovoLog 4 units with meals. The patient is also getting Keflex for UTI. PHYSICAL EXAMINATION: Temperature 98.2, pulse 59, respirations 16, blood pressure 101/60, pulse ox 95% on room air. GENERAL APPEARANCE: Sitting up, comfortable. EYES: Pupils equal. Conjunctivae normal. HEENT: External appearance of nose and ears normal. Oral cavity normal. NECK: JVD not raised. Mass not palpable. Respiratory effort normal. LUNGS: Clear. CARDIOVASCULAR: First and second heart sounds normal. No edema. ABDOMEN: Soft, nontender. Liver and spleen not palpable. PSYCHIATRY: Awake, answering simple questions. INVESTIGATIONS: Creatinine 1.83. Accu-Cheks 87, 154, 202. ASSESSMENT: 1. Acute metabolic encephalopathy secondary to hypoglycemia, corrected. 2. Diabetes mellitus type 2, chronically on insulin, uncontrolled with both hypo- and hyperglycemia. 3. Troponin leak, likely from hemodynamic mismatch, not a picture of acute coronary syndrome. 4. Chronic congestive heart failure from systolic dysfunction, ejection fraction 40% to 45%. 5. Permanent pacemaker. 6. Moderate cognitive impairment from late onset Alzheimer's dementia. 7. Acute urinary tract infection from cystitis. 8. Chronic gait issues a walker. 9. Chronic kidney stage 3 from diabetic nephropathy. PLAN: Will cut back the patient's Levemir to 8 units daily. Leave the NovoLog at the current dose. MMODL / IJN: [id number] /
--- NOTE | 2017-12-29 23:40 | PN ---
PROGRESS NOTE DATE OF SERVICE: 12/29/2017. PRESENTING COMPLAINT: Hypoglycemia. INTERVAL HISTORY: This is an [facility] resident with episodes of hypoglycemia. Insulin had to be drastically scaled back. Sugars are doing better now. MMODL / IJN: [id number] /
[2017-12-30 06:23] VITALS: TEMP 98.3
[2017-12-30 07:03] LABS: Glucose,Whole Blood 135 mg/dL (75-99)
[2017-12-30] MEDS: PANTOPRAZOLE 40 MG TABLET PO SCH (07:54)
[2017-12-30] MEDS: CEPHALEXIN 250 MG CAP PO SCH (07:54)
[2017-12-30] MEDS: ASPIRIN 81 MG PO SCH (07:54)
[2017-12-30] MEDS: FUROSEMIDE 40 MG TAB PO SCH (07:54)
[2017-12-30] MEDS: CHOLECALCIFEROL 1,000 UNIT TAB PO SCH (07:54)
[2017-12-30] MEDS: LISINOPRIL 10 MG TAB PO SCH (07:55)
[2017-12-30] MEDS: INSULIN ASPART 100 UNIT/ML 1 ML 10 ML VIAL SQ SCH ×4 (07:55→13:16)
[2017-12-30 11:24] LABS: Glucose,Whole Blood 202 mg/dL (75-99)
[2017-12-30 11:29] LABS: Calcium 8.9 mg/dL (8.4-10.2); Potassium 4.2 mmol/L (3.5-5.1)
[2017-12-30 12:44] VITALS: BP 117/63; PULSE 70; RESP 17
[2017-12-30] MEDS: MULTIVITAMINS, THERA 1 EACH TAB PO SCH (13:16)
[2017-12-30] MEDS ORDERED: INSULIN DETEMIR 100 UNIT/ML 10 ML VIAL SQ SCH (21:00)
== END 2017-12-30 14:10 | disposition home or self-care (01) | DRG 637 ==
LOC: EC 21:39 → 5MS5E 12-26 03:26
PROVIDERS: ADMIT Hospitalist; ATTEND Hospitalist
DX: E11.649 Type 2 diabetes mellitus with hypoglycemia without coma (principal); G93.41 Metabolic encephalopathy; I42.9 Cardiomyopathy, unspecified; E11.65 Type 2 diabetes mellitus with hyperglycemia; Z79.4 Long term (current) use of insulin; E11.21 Type 2 diabetes mellitus with diabetic nephropathy; E11.22 Type 2 diabetes mellitus with diabetic chronic kidney disease; E55.9 Vitamin D deficiency, unspecified; G30.1 Alzheimer's disease with late onset; F02.80 Dementia in other diseases classified elsewhere, unspecified severity, without behavioral disturbance, psychotic disturbance, mood disturbance, and anxiety; I25.2 Old myocardial infarction; N18.3 Chronic kidney disease, stage 3 (moderate); N30.90 Cystitis, unspecified without hematuria; Z79.82 Long term (current) use of aspirin; Z79.899 Other long term (current) drug therapy; Z86.73 Personal history of transient ischemic attack (TIA), and cerebral infarction without residual deficits; Z95.0 Presence of cardiac pacemaker; Z90.411 Acquired partial absence of pancreas; H26.9 Unspecified cataract; R74.8 Abnormal levels of other serum enzymes; R26.9 Unspecified abnormalities of gait and mobility
CPT/HCPCS: 36415; 51701; 70450; 71045; 71046; 80048; 80053; 81001; 82140; 82550; 82553; 84484; 85025; 93005; 94760; 96361; 96365; 96375; 96376; 99285